=== PATIENT | male | born 1945 | race Caucasian/White ===

== ENCOUNTER → 2023-01-25 | Day surgery (SDC) | payer OTHER ==
[2023-01-22 14:44] LABS: Lymphocytes % 28.2 % (15.3-44.8); MCV 88.1 fL (80-100); MPV 8.2 fL (7.6-11.3); RBC Red Blood Cell Count 4.88 M/uL (4.33-5.43)
[2023-01-22 14:47] LABS: Protime INR 0.94
[2023-01-22 14:55] LABS: Potassium 3.8 mmol/L (3.5-5.1)
--- NOTE | 2023-01-22 14:57 | RAD REPORT ---
EXAM DESCRIPTION: Kya Weiss And Lat (2 Views)01/22/2023 2:42 pm CLINICAL HISTORY: Preop for cardiac catheterization COMPARISON: 2010 FINDINGS: Mild right basilar lung opacity may represent area of atelectasis. Chronic elevation right hemidiaphragm Left lung appears clear. Heart is normal size
[~2023-01-25] MED LIST: ASPIRIN 325 MG TAB ONE; ATROPINE SULF 1 MG/10 ML SYR IV ONE; CLOPIDOGREL 75 MG TABLET ONE; FENTANYL CITR 100 MCG/2 ML ONE; HEPA 1000U/500MLS 2,000 UNIT/1,000 ML BAG IV ONE; HEPARIN 10,000 UNIT/10 ML VIAL IV ONE; HEPARIN 5000 UNIT/ML 1 ML VIAL ONE; LIDOCAINE 1% 20 ML MDV ONE; MIDAZOLAM HCL 2 MG/2 ML INJ ONE; NA CHLORIDE 0.9% 500 ML ONE; NITROGLYCERIN 100 MCG/ML SYR (for cath lab use only) IV ONE; NITROGLYCERIN/D5W 25 MG/250 ML BTL IV ONE; TICAGRELOR 90 MG TABLET PO ONE; VERAPAMIL HCL 10 MG/4 ML VIAL IV ONE
--- NOTE | 2023-01-25 13:25 | OP ---
Date of Procedure: 01/25/2023 Surgeon: WESLEY YBARRA Procedures Performed: 1.Selective coronary angiogram. 2.Left heart catheterization. 3.Percutaneous coronary intervention of the severe distal right coronary artery, critical stenosis w as 99%, used a 3.0 x 16 mm Synergy drug-eluting stent. Indication: Chest pain with abnormal stress test that shows inferior ischemia. Access: Right radial artery 6-Mauritian closed with TR band. Complications: None. Bleeding: Less than 10 mL. Anesthesia: Total sedation time was 45 minutes, used fentanyl and Versed. Description Of Procedure: After risks, benefits, and alternatives were explained, patient agreed to procedure and signed formal consent. Patient was brought into the cardiac catheterization laboratory , prepped and draped in usual sterile fashion. Then, I accessed right radial artery using pediatric micropuncture kit, placed 6-Mauritian slender sheath and took 5-Mauritian [place] 4.0 catheter into the aorti c root, engaged left main. Then, in right coronary artery, took standard views and then over the wir e, the catheter was pushed into the LV, measured the LVEDP, and pullback did not record any gradient. Then, we gave systemic heparin to assure ACT level above 250, and I exchanged the [place] catheter fo r a 6-Mauritian JR4 guide with side holes, engaged the RCA and then I took short Run-Through wire into t he RCA, placed it distally. I gave the patient 600 mg of Plavix and 325 mg of aspirin and then as le afsaneh was pre-dilated using a 3.0 balloon and then placed a 3.0 x 16 mm Synergy drug-eluting stent wit h excellent results and 0% residual stenosis and patient tolerated the procedure very well. Then, wi re and guide were removed and sheath was removed, placed TR band with good hemostasis. Findings: 1.Left main: Large and normal. 2.LAD: Moderate size with luminal irregularities throughout, luminal irregularities in the diagonal branches. 3.There is a small ramus intermedius with mild luminal irregularities. 4.Left circumflex is a codominant circulation with proximal 80% and then the OM1 takes off and that has mid 60% stenosis and then the circ also goes to the inferior wall and has distal 90% stenosis and the vessel becomes very small. 5.RCA is codominant circulation, rather moderate to large size vessel with proximal 30% to 40% steno sis and mid about 40% stenosis and distally there is 99% stenosis, status post successful PCI as abov e. 6.Normal LVEDP at 7 mmHg. Conclusion: 1.Severe distal RCA stenosis, 99%, status post successful PCI as above. 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 We will bring him back in about a month for staged PCI of the left circumfl ex. 3.Mild coronary artery disease elsewhere, and normal LVEDP. Plan: 1.Continue aspirin and Plavix and start him on high-dose statin. 2.To bring him back in a month for a repeat coronary angiogram with PCI of the left circumflex. [place] son for staging is chronic kidney disease and the contrast load. SR/MODL Voice ID: [id number] Report ID: [id number]
[2023-01-25 13:30] VITALS: TEMP 97
[2023-01-25 16:25] VITALS: BP 149/78; O2SAT 99
== END ==
LOC: CCL 10:44
PROVIDERS: ATTEND Internal Medicine
DX: I25.10 Atherosclerotic heart disease of native coronary artery without angina pectoris (principal); I35.0 Nonrheumatic aortic (valve) stenosis; I10 Essential (primary) hypertension; I51.7 Cardiomegaly; Z79.899 Other long term (current) drug therapy
CPT/HCPCS: 85025; 80048; 36415; 85610; 85347 ×3; 85730; 71046; 93458; 76937; C1893; Q9967; C1725; C1887; C9600; J1644; J2001; J2250; J3010; J7040; J0461

== ENCOUNTER 2023-03-07 06:30 | Day surgery (SDC) | payer OTHER ==
[2023-03-04 13:48] LABS: Absolute Lymphocytes (CBC) 1.9 K/uL (0.7-4.9); Hematocrit 46.6 % (39.6-49.0); Lymphocytes % 31.7 % (15.3-44.8); MCV 89.7 fL (80-100); MPV 8.9 fL (7.6-11.3)
[2023-03-04 14:15] LABS: Potassium 4.1 mEq/L (3.5-5.1)
[2023-03-04 14:23] LABS: Protime INR 0.88
--- NOTE | 2023-03-06 04:56 | EKG ---
Test Date: 2023-03-04 Test Time: 13:30:16 Cavalry Scout: AMIE MEASUREMENT RESULTS: Intervals: Rate: 55 MN: 164 QRSD: 92 QT: 408 QTc: 390 [place]: P: 44 MN: 164 QRS: 43 T: -46 INTERPRETIVE STATEMENTS: Sinus bradycardia ST & T wave abnormality, consider inferior ischemia Abnormal ECG Compared to ECG 11/07/2011 08:45:43 ST (T wave) deviation now present Possible ischemia now present Electronically Signed On 03-06-23 04:52:37 CDT by Zackary Calvin
[2023-03-07] MEDS ORDERED: HEPA 1000U/500MLS 2,000 UNIT/1,000 ML BAG IV ONE (06:42)
[2023-03-07] MEDS ORDERED: CLOPIDOGREL 75 MG TABLET ONE (06:43)
[2023-03-07] MEDS ORDERED: HEPARIN 5000 UNIT/ML 1 ML VIAL ONE (06:43)
[2023-03-07] MEDS ORDERED: VERAPAMIL HCL 10 MG/4 ML VIAL IV ONE (06:43)
[2023-03-07] MEDS ORDERED: MIDAZOLAM HCL 2 MG/2 ML INJ ONE (06:43)
[2023-03-07] MEDS ORDERED: FENTANYL CITR 100 MCG/2 ML ONE (06:43)
[2023-03-07] MEDS ORDERED: ASPIRIN 325 MG TAB ONE (06:44)
[2023-03-07] MEDS ORDERED: HEPARIN 10,000 UNIT/10 ML VIAL IV ONE (06:44)
[2023-03-07] MEDS ORDERED: NITROGLYCERIN 100 MCG/ML SYR (for cath lab use only) IV ONE (06:44)
[2023-03-07] MEDS ORDERED: TICAGRELOR 90 MG TABLET PO ONE (06:44)
[2023-03-07] MEDS ORDERED: ATROPINE SULF 1 MG/10 ML SYR IV ONE (06:44)
[2023-03-07] MEDS ORDERED: NITROGLYCERIN/D5W 25 MG/250 ML BTL IV ONE (06:44)
[2023-03-07] MEDS ORDERED: LIDOCAINE 1% 20 ML MDV ONE (06:45)
[2023-03-07] MEDS ORDERED: NA CHLORIDE 0.9% 500 ML ONE (07:04)
[2023-03-07 07:17] VITALS: TEMP 98.2
--- NOTE | 2023-03-07 08:58 | OP ---
Date of Procedure: 03/07/2023 Surgeon: WESLEY YBARRA Procedures Performed: 1.Selective coronary angiogram. 2.PCI of proximal left circumflex severe stenosis, used 2.5 x 12 mm Synergy drug-eluting stent. 3.Balloon angioplasty of severe distal left circumflex stenosis, used 2.5 x 8 mm Compliant balloon w ith improvement from 90% to 80%, but it is very small vessel that will not hold the stent. Access: Right femoral artery 6-Cuban closed with 6-Cuban Angio-Seal. Complications: None. Bleeding: Less than 20 mL. Description Of Procedure: After risks, benefits, and alternatives were explained, the patient agreed to procedure and signed informed consent. The patient was brought into the cardiac catheterization laboratory, prepped and draped in the usual sterile fashion and then I accessed right femoral artery using ultrasound guidance, micropuncture and fluoroscopy, placed a 6-Cuban [place] sheath and took a 6-Cuban EBU3.5 guide into the aortic root, engaged left main, took standard views and took a short Run-Through wire after giving systemic heparin assuring that ACT level above 250. Run-Through wire was advanced to the left circumflex, placed distally. Then, I took a 2.5 x 8 mm Compliant balloon, d id balloon angioplasty of the distal portion; however, the vessel is very small, so did not inflate t he balloon all the way up concern for rupture and then did balloon angioplasty of the proximal lesion and then I used 2.5 x 12 mm Synergy drug-eluting stent to treat the proximal lesion, but the vessel is extremely small. It is less than 2 mm and will not hold the stent. There was no dissection and T IMI-3 flow, so was left alone. I then removed the wire and the guide and sheath, and placed a 6-Fren ch Angio-Seal for closure with good hemostasis. Findings: 1.Left main; large, normal. 2.LAD; overall is normal. Luminal irregularity and normal diagonal branches. 3.There is a ramus intermedius without significant disease. 4.Left circumflex; proximal 90% stenosis, status post PCI as above. Then, the OM has a 50% to 60% d iffusely, which was left alone and the distal left circumflex is about 90%, status post balloon angio plasty as above. 5.The RCA was not injected. Conclusion: Severe left circumflex stenosis, status post successful PCI as above of the proximal por tion. Distal portion will be left for medical management. Continue aspirin, Plavix, and statin. SR/MODL Voice ID: [id number] Report ID: [id number]
[2023-03-07 11:38] VITALS: O2SAT 99
[2023-03-07 12:47] VITALS: BP 140/66
--- NOTE | 2023-03-08 07:09 | ECHO ---
HEIGHT: 5 ft 10 in WEIGHT: 190 lb 0 oz DATE OF STUDY: 03/07/[address]: Main Daniels 2-DIMENSIONAL: YES M.MODE: YES DOPPLER: YES COLOR FLOW: YES TDS: YES PORTABLE: YES DEFINITY: NO BUBBLE STUDY: NO DIAGNOSIS: ORTHOSTATIC HYPOTENSION CARDIAC HISTORY: CATHERIZATION:YES SURGERY: PROSTHETIC VALVE: PACEMAKER: MEASUREMENTS (cm) DIASTOLIC (NORMALS) SYSTOLIC (NORMALS) IVSd 1.0 (0.6-1.2) LA Diam (1.9-4.0) LVEF 64% LVIDd 3.3 (3.5-5.7) LVIDs 2.2 (2.0-3.5) %FS 34% LVPWd 1.1 (0.6-1.2) Ao Diam 3.1 (2.0-3.7) 2 DIMENSIONAL ASSESSMENT: RIGHT ATRIUM: NORMAL LEFT ATRIUM: NORMAL RIGHT VENTRICLE: NORMAL LEFT VENTRICLE: NORMAL TRICUSPID VALVE: NORMAL MITRAL VALVE: NORMAL PULMONIC VALVE: NORMAL AORTIC VALVE: NORMAL PERICARDIAL EFFUSION: NONE AORTIC ROOT: NORMAL LEFT VENTRICULAR WALL MOTION: NORMAL DOPPLER/COLOR FLOW: NOT REQUESTED. COMMENTS: 1. NORMAL 2D ECHOCARDIOGRAM. 2. NO EFFUSION. 3. NO WALL MOTION ABNORMALITY. TECHNOLOGIST: Larry ALICEA
== END 2023-03-07 12:49 | disposition home or self-care (01) ==
LOC: CCL 06:30
PROVIDERS: ATTEND Internal Medicine
DX: I25.10 Atherosclerotic heart disease of native coronary artery without angina pectoris (principal); I10 Essential (primary) hypertension; E78.5 Hyperlipidemia, unspecified
CPT/HCPCS: 93005; 93308; 85025; 80048; 36415; 85610; 85347; 85730; 76937; C1893; C1760; Q9967; G0269; C1725; C9600; J1644; J2001; J2250; J3010; J7040; 93454; J0461

== ENCOUNTER 2023-09-29 09:30 | Emergency (ER) | payer OTHER ==
--- OUTSIDE RECORDS SUMMARY | 2023-09-29 09:33 | XMS REPORT | Clinical Summary ---
:1945 Author Organization [facility] Address [address] [place] [address] Care Team Providers Name Role Phone Eric Son MD Unavailable [phone] Eric Son MD Unavailable [phone] Azeem BLUE MD, John F Unavailable Sheldon Zambrano Unavailable Brendan Finney MD Unavailable Last Mcghee Unavailable Azeem BLUE MD, John F Primary Care Provider Allergies No known active allergies Medications Medication Sig Dispensed Refills Start Date End Date Status amLODIPine daily. 0 03/14/2020 Active (NORVASC) 10 mg tablet finasteride daily. 0 02/21/2020 Active (PROSCAR) 5 mg tablet losartan (COZAAR) daily. 0 03/14/2020 A ctive 100 mg tablet turmeric (CURCUMIN 1 tablet by 0 Active MISC) miscellaneous route daily. cholecalciferol, Take 1,000 Units by 0 Active vitamin D3, 25 mcg mouth. (1,000 unit) tablet Active Problems Problem Noted Date Diagnosed Date Raised prostate specific antigen 04/25/2020 Surgical History Surgery Date Site/Laterality Comments LAPAROSCOPIC CHOLECYSTECOMY APPENDECTOMY Medical History Medical History Date Comments Hypertension Social History Tobacco Use Types Packs/Day Years Used Date Smoking Tobacco: Never Smokeless Tobacco: Never Alcohol Use Standard Drinks/Week Comments Not Currently 0 (1 standard drink = 0.6 oz pure alcoho l) Sex and Gender Information Value Date Recorded Sex Assigned at Male 04/18/2020 11:32 A M CDT Gender Identity Male 04/18/2020 11:32 AM CDT Sexual Orientation Straight 04/18/2020 11:32 AM CDT Job Start Date Occupation Industry Not on file Not on file Not on file Obstetrics History Last Filed Vital Signs Not on file Plan of Treatment Health Maintenance Due Date Last Done Comments COVID-19 Vaccination (#1) 02/24/1946 Results Not on fileafter 09/29/2022 Insurance Payer Benefit Plan / Subscriber ID Effective Dates Phone Addre ss Type Group AETNA MEDICARE AETNA MEDICARE [id number] 2021-Presen [address] [place] [address] Advance Directives Type Date Recorded 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 Explanati on Advance Directives: Living Will 04/13/2014 Historical Advance Directives: Medical Power of 04/13/2014 Historical Functional Tester Care Teams Closer On Relationship Specialty Start Date End Date Eric Son, PCP - External Referring 03/12/14 [address] [place] [address] Eric Son PCP - External Follow Up A 03/12/14 [address] [place] [address] Juan Manuel Gann III, MD PCP - General Urology 01/25/[address] [place] [id number] Juan Manuel Gann III, MD Physician 01/18/[address] [place] [id number] Sheldon Zambrano PA Physician Director Pharmaceutical 01/18/[address] [place] [address]. [place] [address] Brendan Finney MD Physician 01/18/[address] [place] [phone] Last Mcghee PA Physician Director Pharmaceutical 01/18/[address] [place] [id number]
--- OUTSIDE RECORDS SUMMARY | 2023-09-29 09:34 | XMS REPORT | Continuity of Care Document ---
:1945 Author Organization [facility] t Address [address] [facility]. [address] [place] [address] Care Team Providers Name Role Phone Justo Mccain Chang Primary Care Physician Justo Mccain Attending Clinician Unavailable TEODORO PANDEY Attending Clinician Unavailable Teodoro Pandey MD Attending Clinician Veronica Gann MD Attending Clinician VERONICA GANN III Attending Clinician Unavailable Payers Payer Name Policy Type Policy Number Effective Date Expiration Date S shweta [employer] [place] [id number] 2022 OPEN CHOICE PPO 00:00:00 AETNA 53 [id number] 2021 Common [facility] t 00:00:00 - [facility] Problems Condition Condition Condition Status Onset Resolution Last Treating Co mments Source Name Details Category Date Date Treatment Clinician Date Raised Raised Disease Active Univers prostate prostate 6-15 ity of specific specific 00:00: [place] antigen antigen 00 [facility] [id number] Benign Problem Common prostatic Spirit hyperplasi - [facility] a with [facility] urinary Medical tract Center symptoms, symptom details unspecifie d [id number] BPH loc w Problem Com mon urin Spirit obs/LUTS - [facility] Allergies, Adverse Reactions, Alerts Allergy Allergy Status Severity Reaction(s) Onset Inactive Treating Comm ents Source Name Type Date Date Clinician NO KNOWN Allergy Active [facility] Social History Social Habit Start Date Stop Date Quantity Comments Source History of Tobacco [facility] - Use [facility] Sexual orientation [facility] Tobacco use and 2020-04-25 2020-04-25 Smokeless Universit y of exposure 00:00:00 00:00:00 tobacco non-user [facility] Alcohol intake 2020-04-25 2020-04-25 Ex-drinker [facility] 00:00:00 00:00:00 (finding) Jenny Orona [facility] Sex Assigned At [address] 1945 [facility] 00:00:00 00:00:00 Medical Center Smoking Status Start Date Stop Date Source Never Smoker [facility] Medications Ordered Filled Start Stop Current Ordering Indication Dosage Frequency Signature Comments Components Source Medication Medication Date Date Medication? Clinician (SIG) Name Name turmeric Yes 1{tbl} 1 tablet Uni vers (CURCUMIN 6-10 by ity of MISC) 14:24: miscellane [place] 31 ous lucas NG daily. [facility] cholecalcif Yes 1000U Take 1,000 Univers martin, 6-10 Units by ity of vitamin D3, 14:24: mouth. Danya s 25 mcg 31 (1,000 Anderso unit) n tablet [facility] turmeric Yes 1{tbl} 1 tablet Uni vers (CURCUMIN 6-10 by ity of MISC) 14:24: miscellane [place] 31 ous route daily. [facility] cholecalcif Yes 1000U Take 1,000 Univers martin, 6-10 Units by ity of vitamin D3, 14:24[place] 25 [place] 31 (1,000 Anderso unit) n tablet [facility] turmeric Yes 1{tbl} 1 tablet Uni vers (CURCUMIN 6-10 by ity of MISC) 14:24: miscellane [place] 31 [facility]us route [facility]. [facility] cholecalcif 0 Yes 1000U Take 1,000 Univers martin, 6-10 Units by ity of vitamin D3, 14:24: [place] 25 m[place] 31 (1,000 Anderso unit) n tablet Cancer Center turmeric Yes 1{tbl} 1 tablet Uni vers (CURCUMIN 6-10 by ity of MISC) 14:24: miscellane [place] 31 ous route MD [facility]. [facility] cholecalcif 0 Yes 1000U Take 1,000 Univers martin, 6-10 Units by ity of vitamin D3, 14:24: [place] 25 mcg 31 (1,000 Anderso unit) n tablet Cancer Center turmeric Yes 1{tbl} 1 tablet Uni vers (CURCUMIN 6-10 by ity of MISC) 14:24: miscellane [place] 31 [address] route MD daily. [facility] cholecalcif Yes 1000U Take 1,000 Univers martin, 6-10 Units by ity of vitamin D3, 14:24: [place] 25 mcg 31 (1,000 Anderso unit) n tablet Cancer Center turmeric Yes 1{tbl} 1 tablet Uni vers (CURCUMIN 6-10 by ity of MISC) 14:24: miscellane [place] 31 [address] route MD daily. [facility] cholecalcif Yes 1000U Take 1,000 Univers martin, 6-10 Units by ity of vitamin D3, 14:24: [place]. [place] 25 mcg 31 MD (1,000 Anderso unit) n tablet Cancer Center turmeric Yes 1{tbl} 1 tablet Uni vers (CURCUMIN 6-10 by ity of MISC) 14:24: miscellane [place] 31 [address] MD daily. [facility] cholecalcif 0 Yes 1000U Take 1,000 Univers martin, 6-10 Units by ity of vitamin D3, 14:24: [place]. [place] 25 mcg 31 (1,000 Anderso unit) n tablet Cancer Center amLODIPine 0 Yes daily. Unive rs (NORVASC) 5-04 ity of 10 mg 00:00: [place] tablet [address] [facility] losartan 2020-0 Yes daily. Univers (COZAAR) 5-04 ity of 100 mg 00:00: [place] tablet [address] [facility] amLODIPine 2020-0 Yes daily. Unive rs (NORVASC) 5-04 ity of 10 mg 00:00: [place] tablet [address] [facility] losartan 2020-0 Yes daily. Univers (COZAAR) 5-04 ity of 100 mg 00:00: [place] tablet [address] [facility] amLODIPine 2020-0 Yes daily. Unive rs (NORVASC) 5-04 ity of 10 mg 00:00: [place] tablet [address] [facility] losartan 2020-0 Yes daily. Univers (COZAAR) 5-04 ity of 100 mg 00:00: [place] tablet [address] [facility] amLODIPine 2020-0 Yes daily. Unive rs (NORVASC) 5-04 ity of 10 mg 00:00: [place] tablet [address] [facility] losartan 2020-0 Yes daily. Univers (COZAAR) 5-04 ity of 100 mg 00:00: [place] tablet [address] [facility] amLODIPine 2020-0 Yes daily. Unive rs (NORVASC) 5-04 ity of 10 mg 00:00: [place] tablet [address] [facility] losartan 2020-0 Yes daily. Univers (COZAAR) 5-04 ity of 100 mg 00:00: [place] tablet [address] [facility] losartan 2020-0 Yes daily. Univers (COZAAR) 5-04 ity of 100 mg 00:00: [place] tablet [address] [facility] amLODIPine 2020-0 Yes daily. Unive rs (NORVASC) 5-04 ity of 10 mg 00:00: [place] tablet [address] [facility] amLODIPine 2020-0 Yes daily. Unive rs (NORVASC) 5-04 ity of 10 mg 00:00: [place] tablet [address] [facility] losartan 2020-0 Yes daily. Univers (COZAAR) 5-04 ity of 100 mg 00:00: [place] tablet [address] [facility] finasteride 2020-0 Yes daily. Univ ers (PROSCAR) 5 4-12 ity of mg tablet 00:00: [place] 00 [facility] finasteride 2020-0 Yes daily. Univ ers (PROSCAR) 5 4-12 ity of mg tablet 00:00: [place] 00 [facility] finasteride 2020-0 Yes daily. Univ ers (PROSCAR) 5 4-12 ity of mg tablet 00:00: [place] 00 [facility] finasteride 2020-0 Yes daily. Univ ers (PROSCAR) 5 4-12 ity of mg tablet 00:00: [place] 00 [facility] finasteride 2020-0 Yes daily. Univ ers (PROSCAR) 5 4-12 ity of mg tablet 00:00: [place] 00 [facility] finasteride 2020-0 Yes daily. Univ ers (PROSCAR) 5 4-12 ity of mg tablet 00:00: [place] 00 [facility] finasteride 2020-0 Yes daily. Univ ers (PROSCAR) 5 4-12 ity of mg tablet 00:00: [place] 00 [facility] Folate 400 Folate 400 No 1{table QD Folate 400 MCG MCG t} MCG amLODIPine amLODIPine No 1{table QD amLODIPine Besylate 10 Besylate 10 t} Besylate MG MG 10 MG Losartan Losartan No 1{table QD Losartan Potassium-H Potassium-H t} Potassium- CTZ 100-25 CTZ 100-25 HCTZ MG MG 100-25 MG Finasteride Finasteride No 1{table QD Finasterid 5 MG 5 MG t} e 5 MG Nac 600 600 Nac 600 600 No 1{capsu QD Nac 600 MG MG le} 600 MG Vitamin D Vitamin D No 1{table QD Vitamin D 50 MCG 50 MCG t} 50 MCG (1999) (1999) (1999 [place]) Finasteride Finasteride No 1{table QD Finasterid 5 MG 5 MG t} e 5 MG Folate 400 Folate 400 No 1{table QD Folate 400 MCG MCG t} MCG Nac 600 600 Nac 600 600 No 1{capsu QD Nac 600 MG MG le} 600 MG Vitamin D Vitamin D No 1{table QD Vitamin D 50 MCG 50 MCG t} 50 MCG (1999) (1999) (1999 [place]) Losartan Losartan No 1{table QD Losartan Potassium-H Potassium-H t} Potassium- CTZ 100-25 CTZ 100-25 HCTZ MG MG 100-25 MG amLODIPine amLODIPine No 1{table QD amLODIPine Besylate 10 Besylate 10 t} Besylate MG MG 10 MG Vital Signs Vital Name Observation Time Observation Value Comments Source height 2023-03-14 15:15:00 70 [in_i] [facility] weight 2023-03-14 15:15:00 195.8 [lb_av] [facility] temperature 2023-03-14 15:15:00 98 [degF] [facility] bmi 2023-03-14 15:15:00 28.09 kg/m2 [facility] oximetry 2023-03-14 15:15:00 96 % [facility] respiratory rate 2023-03-14 15:15:00 18 /min Comm on [facility] blood pressure 2023-03-14 15:15:00 136 mm[Hg] Common [facility] - systolic [facility] blood pressure 2023-03-14 15:15:00 68 mm[Hg] Common [facility] - diastolic [facility] height 2022-09-06 16:30:00 70 [in_i] [facility] weight 2022-09-06 16:30:00 198.6 [lb_av] [facility] temperature 2022-09-06 16:30:00 98.1 [degF] [facility] bmi 2022-09-06 16:30:00 28.49 kg/m2 [facility] oximetry 2022-09-06 16:30:00 99 % [facility] respiratory rate 2022-09-06 16:30:00 18 /min Comm on [facility] blood pressure 2022-09-06 16:30:00 202 mm[Hg] Common [facility] - systolic [facility] blood pressure 2022-09-06 16:30:00 89 mm[Hg] [facility] - diastolic [facility] Procedures Procedure Date / Time Performed Performing Clinician Sourmegan e MR PELVIS WITH & 2023-06-04 12:17:12 Teodoro Pandey [facility] WITHOUT IV CONTRAST Center Plan of Care Planned Activity Planned Date Details Comments Source Future Scheduled 2023-07-[address] [facility] Test 00:00:00 (#1) [code = Medical Center Influenza Vaccine (#1)] Future Scheduled 2023-07-[address] [facility] Test 00:00:00 (#1) [code = [facility] Influenza Vaccine (#1)] Future Scheduled 2023-07-[address] [facility] Test 00:00:00 (#1) [code = [facility] Influenza Vaccine (#1)] Future Scheduled 2023-07-[address] [facility] Test 00:00:00 (#1) [code = [facility] Influenza Vaccine (#1)] Future Scheduled 2023-07-[address] [facility] Test 00:00:00 (#1) [code = [facility] Influenza Vaccine (#1)] Future Scheduled 2022-11-[address] [facility] Test 00:00:00 (12+) [code = Medical Center DEPRESSION SCREENING (12+)] Future Scheduled 2022-11-11 FALLS RISK SCREENING [facility] Test 00:00:00 [code = FALLS RISK Medical C enter SCREENING] Future Scheduled 2022-11-[address] [facility] Test 00:00:00 (12+) [code = Medical Center DEPRESSION SCREENING (12+)] Future Scheduled 2022-11-11 FALLS RISK SCREENING [facility] Test 00:00:00 [code = FALLS RISK Medical C enter SCREENING] Future Scheduled 2022-11-[address] [facility] Test 00:00:00 (12+) [code = Medical Center DEPRESSION SCREENING (12+)] Future Scheduled 2022-11-11 FALLS RISK SCREENING [facility] Test 00:00:00 [code = FALLS RISK Medical C enter SCREENING] Future Scheduled 2022-11-[address] [facility] Test 00:00:00 (12+) [code = Medical Center DEPRESSION SCREENING (12+)] Future Scheduled 2022-11-11 F[address]S RISK SCREENING [facility] Test 00:00:00 [code = FALLS RISK Medical C enter SCREENING] Future Scheduled 2022-11-[address] [facility] Test 00:00:00 (12+) [code = Medical Center DEPRESSION SCREENING (12+)] Future Scheduled 2022-11-11 F[address]K SCREENING [facility] Test 00:00:00 [code = FALLS RISK Medical C enter SCREENING] Future Scheduled 2022-05-16 COVID-19 [facility] [place] [facility] 03:46:03 (#1) [code = COVID-19 [facility] (#1)] Center Future Scheduled 2022-05-16 COVID-19 Vaccination [facility] [place] Test 03:46:03 (#1) [code = COVID-19 [facility]ination (#1)] Center Future Scheduled 2022-05-16 COVID-19 Vaccination [facility] [place] Test 03:46:03 (#1) [code = COVID-19 [facility] Vaccination (#1)] Center Future Scheduled 2022-05-16 COVID-19 Vaccination [facility] [place] Test 03:46:03 (#1) [code = COVID-19 [facility] Vaccination (#1)] Center Future Scheduled 2022-05-16 COVID-19 Vaccination [facility] [place] Test 03:46:03 (#1) [code = COVID-19 [facility] Vaccination (#1)] Center Future Scheduled 2022-05-16 COVID-19 Vaccination [facility] [place] Test 03:46:03 (#1) [code = COVID-19 [facility] Vaccination (#1)] Center Future Scheduled 2022-05-16 COVID-19 Vaccination [facility] [place] Test 03:46:03 (#1) [code = COVID-19 MD [facility] Vaccination (#1)] Center Future Scheduled 2010 PNEUMOCOCCAL 65+ YRS [facility] Test 00:00:00 (1 - PCV) [code = Medical Ce nter PNEUMOCOCCAL 65+ YRS (1 - PCV)] Future Scheduled 2010 PNEUMOCOCCAL 65+ YRS [facility] Test 00:00:00 (1 - PCV) [code = Medical Ce nter PNEUMOCOCCAL 65+ YRS (1 - PCV)] Future Scheduled 2010 PNEUMOCOCCAL 65+ YRS [facility] Test 00:00:00 (1 - PCV) [code = Medical Ce nter PNEUMOCOCCAL 65+ YRS (1 - PCV)] Future Scheduled 2010 PNEUMOCOCCAL 65+ YRS [facility] Test 00:00:00 (1 - PCV) [code = Medical Ce nter PNEUMOCOCCAL 65+ YRS (1 - PCV)] Future Scheduled 2010 PNEUMOCOCCAL 65+ YRS [facility] Test 00:00:00 (1 - PCV) [code = Medical Ce nter PNEUMOCOCCAL 65+ YRS (1 - PCV)] Future Scheduled 1995 SHINGLES VACCINES ([address] [facility] Test 00:00:00 of 2) [code = Medical Center SHINGLES VACCINES (1 of 2)] Future Scheduled 1995 SHINGLES VACCINES ([address] [facility] Test 00:00:00 of 2) [code = Medical Center SHINGLES VACCINES (1 of 2)] Future Scheduled 1995 SHINGLES VACCINES ([address] [facility] Test 00:00:00 of 2) [code = Medical Center SHINGLES VACCINES (1 of 2)] Future Scheduled 1995 SHINGLES VACCINES ([address] [facility] Test 00:00:00 of 2) [code = Medical Center SHINGLES VACCINES (1 of 2)] Future Scheduled 1995 SHINGLES VACCINES ([address] [facility] Test 00:00:00 of 2) [code = Medical Center SHINGLES VACCINES (1 of 2)] Future Scheduled 1964 DTAP/TDAP/TD VACCINES [facility] 00:00:00 (1 - Tdap) [code = Medical C enter DTAP/TDAP/TD VACCINES (1 - Tdap)] Future Scheduled 1964 DTAP/TDAP/TD VACCINES [facility] 00:00:00 (1 - Tdap) [code = Medical C enter DTAP/TDAP/TD VACCINES (1 - Tdap)] Future Scheduled 1964 DTAP/TDAP/TD VACCINES [facility] 00:00:00 (1 - Tdap) [code = Medical C enter DTAP/TDAP/TD VACCINES (1 - Tdap)] Future Scheduled 1964 DTAP/TDAP/TD VACCINES [facility] 00:00:00 (1 - Tdap) [code = Medical C enter DTAP/TDAP/TD VACCINES (1 - Tdap)] Future Scheduled 1964 DTAP/TDAP/TD VACCINES [facility] 00:00:00 (1 - Tdap) [code = Medical C enter DTAP/TDAP/TD VACCINES (1 - Tdap)] Future Scheduled 1963 HEPATITIS C [facility]CREENING [facility] 00:00:00 [code = HEPATITIS C Medical Center SCREENING] Future Scheduled 1963 HEPATITIS C [facility]CRE[facility]ING [facility] 00:00:00 [code = HEPATITIS C Medical Center SCREENING] Future Scheduled 1963 HEPATITIS C [facility]CRE[facility]ING [facility] 00:00:00 [code = HEPATITIS C Medical Center SCREENING] Future Scheduled 1963 HEPATITIS C [facility]CRE[facility]ING [facility] 00:00:00 [code = HEPATITIS C Medical Center SCREENING] Future Scheduled 1963 HEPATITIS C [facility]CRE[facility]ING [facility] 00:00:00 [code = HEPATITIS C Medical Center SCREENING] Future Scheduled [address] [facility] Test 00:00:00 Counseling and Medical Cente r Screening (12+) [code = Tobacco Cessation Counseling and Screening (12+)] Future Scheduled [address] [facility] Test 00:00:00 Counseling and Medical Cente r Screening (12+) [code = Tobacco Cessation Counseling and Screening (12+)] Future Scheduled [address] [facility] Test 00:00:00 Counseling and Medical Cente r Screening (12+) [code = Tobacco Cessation Counseling and Screening (12+)] Future Scheduled [address] [facility] Test 00:00:00 Counseling and Medical Cente r Screening (12+) [code = Tobacco Cessation Counseling and Screening (12+)] Future Scheduled [address] [facility] Test 00:00:00 Counseling and Medical Cente r Screening (12+) [code = Tobacco Cessation Counseling and Screening (12+)] Future Scheduled 1946-02-24 COVID-19 VACCINE (#1) [facility] 00:00:00 [code = COVID-[address] VACCINE (#1)] Future Scheduled 1946-02-24 COVID-19 VACCINE (#1) [facility] 00:00:00 [code = COVID-[address] VACCINE (#1)] Future Scheduled 1946-02-24 COVID-19 VACCINE (#1) [facility] 00:00:00 [code = COVID-[address] VACCINE (#1)] Future Scheduled 1946-02-24 COVID-19 VACCINE (#1) [facility] 00:00:00 [code = COVID-[address] VACCINE (#1)] Future Scheduled 1946-02-24 COVID-19 VACCINE (#1) [facility] 00:00:00 [code = COVID-[address] VACCINE (#1)] Encounters Start End Encounter Admission Attending Care Care Encounter Source Date/Time Date/Time Type Type Clinicians Facility Department ID 2022-09-06 Outpatient Mccain, [facility] [id number] Common 16:15:02 [facility] [id number] Spir it - [facility] 2023-06-04 2023-06-04 [id number] 08:59:57 23:59:00 [facility] 2023-06-04 2023-06-04 [id number] 08:59:57 23:59:00 Encounter [facility] 2023-06-04 2023-06-04 [facility] Dannie [facility] [id number] 08:59:57 23:59:00 Encounter [facility] 2023-03-25 2023-03-25 Outside Dannie [facility] [id number] 00:00:00 00:00:00 Orders [facility] 2023-03-25 2023-03-25 Outside Dannie [facility] [id number] 00:00:00 00:00:00 Orders [facility] 2023-03-14 2023-03-14 OFFICE [facility] [id number] Co mmon 00:00:00 00:00:00 VISIT Spirit ESTAB PT - [facility]I LEVEL 3 [facility] 2022-09-06 2022-09-06 [facility] [id number] Co mmon 00:00:00 00:00:00 VISIT Spirit ESTAB PT - [facility] LEVEL 2 [facility] 2022-04-23 2022-04-23 Telemedici Gann, Veronica [id number] [facility] 13:00:00 13:30:00 joshua [id number] ity of [id number] [place] .[id number] .[id number] [facility] 2021-06-27 2021-06-27 Outpatient EL GANN III, MDA MDA [id number] 10:03:43 10:03:43 VERONICA marshall 2021-06-19 2021-06-19 Outpatient EL GANN III, MDA RAFY [id number] 00:00:00 00:00:00 VERONICA marshall 2020-12-05 2020-12-05 Outpatient EL GANN III, MDA MDA [id number] 14:39:21 15:26:38 VERONICA marshall 2020-10-31 2020-10-31 Outpatient EL GANN III, MDA MDA [id number] 00:00:00 00:00:00 VERONICA marshall 2020-10-31 2020-10-31 Outpatient EL GANN III, MDA MDA [id number] 00:00:00 00:00:00 VERONICA marshall 2020-04-29 2020-04-29 Outpatient EL GANN III, MDA MDA [id number] 10:52:07 10:52:07 VERONICA marshall Results Test Test Test Results Result Source Description Time Comments Comments MR PELVIS WITH 2023-06- & WITHOUT IV 01 [facility] 1945 Sex: M MELISSA HNIQUE: MRI of the prostate WITHOUT and WITH intravenous contrast.INDICATION: Unlisted Reason for Exam. Elevated PSACOMPARISON: None.FINDINGS:PROSTATE: The prostate measures 7.3 x 5.8 x 6.1 cm (134 mL). An area ofmarkedly restricted diffusion extends from the left base to apicalperipheral zone (greatest in the mid gland) measures 1.7 cm on series 23image 16. This area markedly enhances on early phase imaging. PI-RADS 5SEMINAL VESICLES: Unremarkable.LYMPH NODES: No pelvic lymphadenopathy.BLADDER: Unremarkable.RECTUM: Unremarkable.PERITONEUM/RETROPER ITONEUM: No free fluid. 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 An area of markedly restricted diffusion in the left base to apicalperipheral zone measures 1.7 cm. PI-RADS 52. No lymphadenopathy3. Marked prostatomegalyElectronically Signed By: Rk Rees06/11/2023 09:33 CDTWorkstation Name: [id number]
--- NOTE | 2023-09-29 09:52 | ER ---
Nurse's Notes [facility] Name: Anurag Hopper Age: 78 yrs Sex: Male : 1945 Arrival Date: 09/29/2023 Time: 09:30 Bed 8 Private MD: Diagnosis: Other retention of urine-PVR 850 CC;Retention of urine, unspecified Presentation: 09/29 09:40 Chief complaint: Unable to urinate since this morning, had prostate biopsy Saturday by Dr. Pandey. Coronavirus screen: At this time, the client does not indicate any symptoms associated with coronavirus-19. Ebola Screen: No symptoms or risks identified at this time. Initial Sepsis Screen: Does the patient meet any 2 criteria? No. Patient's initial sepsis screen is negative. Does the patient have a suspected source of infection? No. Patient's initial sepsis screen is negative. Risk Assessment: Do you want to hurt yourself or someone else? Patient reports no desire to harm self or others. Onset of symptoms was September 29, 2023. 09:40 Method Of Arrival: Ambulatory 09:40 Acuity: TERRY 3 Triage Assessment: 09:35 General: Appears uncomfortable, Behavior is cooperative. Pain: Complains of pain in aa5 suprapubic area Pain does not radiate. Pain currently is 8 out of 10 on a pain scale. Quality of pain is described as aching, Pain began 3 hours ago. Is continuous. Historical: - Allergies: 09:43 No Known Allergies; hb - Home Meds: 09:55 losartan 50 mg oral tablet 2 times per day [Active]; aspirin 81 mg Oral tablet,chewable hb [Active]; atorvastatin 40 mg oral tablet daily [Active]; amlodipine 10 mg tablet 2 times per day [Active]; finasteride 5 mg oral tablet daily [Active]; nebivolol 20 mg oral tablet daily [Active]; clopidogrel 75 mg oral tablet daily [Active]; amlodipine 10 mg tablet 2 times per day [Active]; - Immunization history:: Adult Immunizations unknown. - Family history:: not pertinent. - Social history:: Smoking status: Patient denies any tobacco usage or history of. Screenin:35 [facility] ED Fall Risk Assessment (Adult) History of falling in the last 3 months, rs5 including since admission No falls in past 3 months (0 pts) Confusion or Disorientation No (0 pts) Intoxicated or Sedated No (0 pts) Impaired Gait No (0 pts) Mobility Assist Device Used No (0 pt) Altered Elimination No (0 pt) Score/Fall Risk Level 0 - 2 = Low Risk Oriented to surroundings, Maintained a safe environment. Abuse screen: Denies threats or abuse. Nutritional screening: No deficits noted. Tuberculosis screening: No symptoms or risk factors identified. Assessment: 09:35 Reassessment: Pt states "I have what people call white coat syndrome, my blood rs5 pressures tends to read higher in hospitals and at clinics than it is at home". General: Appears in no apparent distress. comfortable, Behavior is calm, cooperative. Pain: Complains of pain in suprapubic area Pain does not radiate. Pain currently is 8 out of 10 on a pain scale. Quality of pain is described as aching, tender, Pain began 3 hours ago. Is continuous. Neuro: Level of Consciousness is awake, alert, obeys commands, Oriented to person, place, time, situation. Cardiovascular: Heart tones S1 S2 present Rhythm is regular. Respiratory: Airway is patent Respiratory effort is even, unlabored, Respiratory pattern is regular, symmetrical, Breath sounds are clear bilaterally. GI: Abdomen is round distended, Bowel sounds present X 4 quads. Abdomen is tender to palpation in suprapubic area Reports lower abdominal pain. : Last void was September 29, 2023. Bladder is distended Reports inability to void, since September 29, 2023. EENT: No signs and/or symptoms were reported regarding the EENT system. Derm: Skin is intact, Skin is pink, warm \\T\\ dry. Musculoskeletal: Range of motion: intact in all extremities. 10:05 Reassessment: Patient states feeling better. Patient states symptoms have improved. To rs5 bedside for Akhtar insertion with tech. Successful Akhtar insertion, pt tolerated procedure well. Pt voided 850 ml of clear donna urine in Akhtar bag . 10:05 Pain: Denies pain. rs5 10:20 Reassessment: Patient and/or family updated on plan of care and expected duration. Pain rs5 level reassessed. Patient is alert, oriented x 3, equal unlabored respirations, skin warm/dry/pink. Akhtar bag changed to leg bag and secured to right lower extremity with straps. 10:49 Reassessment: Patient and/or family updated on plan of care and expected duration. Pain rs5 level reassessed. Patient is alert, oriented x 3, equal unlabored respirations, skin warm/dry/pink. Vital Signs: 09:40 BP 212 / 98; Pulse 81; Resp 16; Temp 98(TE); Pulse Ox 100% on R/A; Weight 81.65 kg; hb Height 5 ft. 10 in. ; Pain 10/10; 09:40 BP 180 / 96; Pulse 77; Resp 17; Temp 98(O); Pulse Ox 99% on R/A; rs5 10:20 BP 170 / 89; Pulse 75; Resp 16; Pulse Ox 99% on R/A; rs5 09:40 Body Mass Index 25.83 (81.65 kg, 177.8 cm) hb 09:40 Pain Scale: Adult hb ED Course: 09:32 Patient arrived in ED. mr 09:35 Patient has correct armband on for positive identification. Placed in gown. Bed in low rs5 position. Call light in reach. Side rails up X2. 09:36 Logan Branham MD is Attending Physician. silvio 09:41 Sami Jon RN is Primary Nurse. rs5 09:42 Triage completed. hb 09:43 Arm band placed on. hb 10:50 No provider procedures requiring assistance completed. Patient did not have IV access rs5 during this emergency room visit. Administered Medications: 10:10 Drug: Flomax PO 0.4 mg PO once Route: PO; rs5 10:50 Follow up: Response: No adverse reaction aa5 10:50 Follow up: Response: No adverse reaction rs5 10:10 Drug: Ciprofloxacin PO 250 mg PO once Route: PO; rs5 10:50 Follow up: Response: No adverse reaction rs5 Medication: 10:50 VIS not applicable for this client. rs5 Outcome: 09:51 Discharge ordered by . silvio 10:50 Discharged to home ambulatory, rs5 10:50 Condition: stable 10:50 Discharge instructions given to patient, Instructed on discharge instructions, follow up and referral plans. Akhtar leg bag care, to keep bag below bladder level, how to empty bag when 2/[address] way full 11:01 Patient left the ED. iw Signatures: Logan Branham MD MD cha Rivera, Mary, Reg Reg mr Fariba Carrillo RN RN iw Connie Lynn RN RN aa5 Katelynn Wolf RN RN Sami Jon RN RN rs5 Corrections: (The following items were deleted from the chart) 14:56 10:05 Reassessment: Patient states feeling better. Patient states symptoms have aa5 improved. To bedside for Akhtar insertion with tech. Successful Akhtar insertion, pt tolerated procedure well. Pt voided 850 ml of clear donna urine in Akhtar bag . rs5 15: 14:51 General: Appears aa5 aa5 17: 09:35 General: Appears in no apparent distress. comfortable, Behavior is calm, rs5 cooperative, aa5 17: 09:35 Pain: Complains of pain in suprapubic area Pain does not radiate. Pain currently rs5 is 8 out of 10 on a pain scale. Quality of pain is described as aching, tender, Pain began 3 hours ago. Is continuous, aa5 : 09:35 Neuro: Level of Consciousness is awake, alert, obeys commands, Oriented to rs5 person, place, time, situation, aa5 : 09:35 Cardiovascular: Heart tones S1 S2 present Rhythm is regular aa5 rs5 17: 09:35 Respiratory: Airway is patent Respiratory effort is even, unlabored, Respiratory rs5 pattern is regular, symmetrical, Breath sounds are clear bilaterally. aa5 : 09:35 GI: Abdomen is round distended, Bowel sounds present X 4 quads. Abdomen is tender rs5 to palpation in suprapubic area Reports lower abdominal pain, aa5 : 09:35 : Last void was September 29, 2023. Bladder is distended Reports inability to rs5 void, since September 29, 2023 aa5 : 09:35 EENT: No signs and/or symptoms were reported regarding the EENT system. aa5 rs5 : 09:35 Derm: Skin is intact, Skin is pink, warm \\T\\ dry. aa5 rs5 : 09:35 Musculoskeletal: Range of motion: intact in all extremities, aa5 rs5 17: 09:35 Reassessment: Pt states "I have what people call white coat syndrome, my blood rs5 pressures tends to read higher in hospitals and at clinics than it is at home". aa5 17: 10:05 Reassessment: Patient states feeling better. Patient states symptoms have rs5 improved. To bedside for Akhtar insertion with tech. Successful Akhtar insertion, pt tolerated procedure well. Pt voided 850 ml of clear donna urine in Akhtar bag . [facility] : 10:20 Reassessment: Patient and/or family updated on plan of care and expected rs5 duration. Pain level reassessed. Patient is alert, oriented x 3, equal unlabored respirations, skin warm/dry/pink. Akhtar bag changed to leg bag and secured to right lower extremity with straps. [facility] 17: 10:05 Pain: Denies pain. [place] [id number] 17: 10:49 Reassessment: Patient and/or family updated on plan of care and expected rs5 duration. Pain level reassessed. Patient is alert, oriented x 3, equal unlabored respirations, skin warm/dry/pink. [facility] : 10:50 No provider procedures requiring assistance completed. [place] [id number] 17: 10:50 Patient did not have IV access during this emergency room visit. [place] [id number] 17: 09:35 Patient has correct armband on for positive identification. Placed in gown. Bed rs5 in low position. Call light in reach. Side rails up X2. [facility]: 10:50 Discharged to home ambulatory, [place] [id number] 17: 10:50 Condition: stable [place] [id number] 17: 10:50 Discharge instructions given to patient, Instructed on discharge instructions, rs5 follow up and referral plans. Akhtar leg bag care, to keep bag below bladder level, how to empty bag when 2/[address] [facility] : 09:35 [facility] ED Fall Risk Assessment (Adult) History of falling in the last 3 months, rs5 including since admission No falls in past 3 months (0 pts) Confusion or Disorientation No (0 pts) Intoxicated or Sedated No (0 pts) Impaired Gait No (0 pts) Mobility Assist Device Used No (0 pt) Altered Elimination No (0 pt) Score/Fall Risk Level 0 - 2 = Low Risk Oriented to surroundings, Maintained a safe environment, [facility] : 09:35 Abuse screen: Denies threats or abuse. [place] [id number] 17: 09:35 Nutritional screening: No deficits noted. [place] [id number] 17: 09:35 Tuberculosis screening: No symptoms or risk factors identified. aa5 rs5 17:03 09:40 BP 180 / 96; Pulse 77bpm; Resp 17bpm; Pulse Ox 99% RA; Temp 98F Oral; aa5 rs5 17:03 10:20 BP 170 / 89; Pulse 75bpm; Resp 16bpm; Pulse Ox 99% RA; aa5 rs5 17:04 10:50 Immunization history: Adult Immunizations unknown, aa5 rs5 17:04 10:50 Social history: Smoking status: Patient denies any tobacco usage or history of. rs5 aa5 17:04 10:50 VIS not applicable for this client. aa5 rs5 17:04 10:50 Response: No adverse reaction aa5 rs5 17:04 10:50 Response: No adverse reaction aa5 rs5
--- NOTE | 2023-09-29 09:52 | EDPHYS ---
Physician Documentation [facility] Name: Anurag Hopper Age: 78 yrs Sex: Male : 1945 Arrival Date: 09/29/2023 Time: 09:30 Bed 8 Private MD: ED Physician Logan Branham HPI: 09/29 09:46 This 78 yrs old Male presents to ER via Ambulatory with complaints of Urinary silvio Problem, Testicular Swelling. 09:46 The patient presents with urinary symptoms, unable to void. Onset: The symptoms/episode silvio began/occurred 1 day(s) ago. Modifying factors: The symptoms are alleviated by nothing, the symptoms are aggravated by nothing. Associated signs and symptoms: The patient has no apparent associated signs or symptoms. Severity of symptoms: At their worst the symptoms were moderate, in the emergency department the symptoms are unchanged. The patient has not experienced similar symptoms in the past. Historical: - Allergies: 09:43 No Known Allergies; hb - Home Meds: 09:55 losartan 50 mg oral tablet 2 times per day [Active]; aspirin 81 mg Oral tablet,chewable hb [Active]; atorvastatin 40 mg oral tablet daily [Active]; amlodipine 10 mg tablet 2 times per day [Active]; finasteride 5 mg oral tablet daily [Active]; nebivolol 20 mg oral tablet daily [Active]; clopidogrel 75 mg oral tablet daily [Active]; amlodipine 10 mg tablet 2 times per day [Active]; - Immunization history:: Adult Immunizations unknown. - Family history:: not pertinent. - Social history:: Smoking status: Patient denies any tobacco usage or history of. ROS: 09:46 Constitutional: Negative for fever, chills, and weight loss, Eyes: Negative for injury, silvio pain, redness, and discharge, ENT: Negative for injury, pain, and discharge, Neck: Negative for injury, pain, and swelling, Cardiovascular: Negative for chest pain, palpitations, and edema, Respiratory: Negative for shortness of breath, cough, wheezing, and pleuritic chest pain, Abdomen/GI: Negative for abdominal pain, nausea, vomiting, diarrhea, and constipation, Back: Negative for injury and pain, MS/Extremity: Negative for injury and deformity, Skin: Negative for injury, rash, and discoloration, Neuro: Negative for headache, weakness, numbness, tingling, and seizure, Psych: Negative for depression, anxiety, suicide ideation, homicidal ideation, and hallucinations, Allergy/Immunology: Negative for hives, rash, and allergies, Endocrine: Negative for neck swelling, polydipsia, polyuria, polyphagia, and marked weight changes, Hematologic/Lymphatic: Negative for swollen nodes, abnormal bleeding, and unusual bruising, 09:46 : Positive for difficulty urinating, Exam: 09:46 Constitutional: This is a well developed, well nourished patient who is awake, alert, silivo and in no acute distress. Head/Face: Normocephalic, atraumatic. Eyes: Pupils equal round and reactive to light, extra-ocular motions intact. Lids and lashes normal. Conjunctiva and sclera are non-icteric and not injected. Cornea within normal limits. Periorbital areas with no swelling, redness, or edema. ENT: Nares patent. No nasal discharge, no septal abnormalities noted. Tympanic membranes are normal and external auditory canals are clear. Oropharynx with no redness, swelling, or masses, exudates, or evidence of obstruction, uvula midline. Mucous membranes moist. Neck: Trachea midline, no thyromegaly or masses palpated, and no cervical lymphadenopathy. Supple, full range of motion without nuchal rigidity, or vertebral point tenderness. No Meningismus. Chest/axilla: Normal chest wall appearance and motion. Nontender with no deformity. No lesions are appreciated. Cardiovascular: Regular rate and rhythm with a normal S1 and S2. No gallops, murmurs, or rubs. Normal PMI, no JVD. No pulse deficits. Respiratory: Lungs have equal breath sounds bilaterally, clear to auscultation and percussion. No rales, rhonchi or wheezes noted. No increased work of breathing, no retractions or nasal flaring. Back: No spinal tenderness. No costovertebral tenderness. Full range of motion. Male : Normal genitalia with no discharge or lesions. Skin: Warm, dry with normal turgor. Normal color with no rashes, no lesions, and no evidence of cellulitis. MS/ Extremity: Pulses equal, no cyanosis. Neurovascular intact. Full, normal range of motion. Neuro: Awake and alert, GCS 15, oriented to person, place, time, and situation. Cranial nerves II-XII grossly intact. Motor strength 5/5 in all extremities. Sensory grossly intact. Cerebellar exam normal. Normal gait. Psych: Awake, alert, with orientation to person, place and time. Behavior, mood, and affect are within normal limits. 09:46 Abdomen/GI: Inspection: distension, Bowel sounds: normal, Palpation: moderate abdominal tenderness, in the suprapubic area, Liver: no appreciated palpable abnormalities, Hernia: not appreciated, Vital Signs: 09:40 BP 212 / 98; Pulse 81; Resp 16; Temp 98(TE); Pulse Ox 100% on R/A; Weight 81.65 kg; hb Height 5 ft. 10 in. ; Pain 10/10; 09:40 BP 180 / 96; Pulse 77; Resp 17; Temp 98(O); Pulse Ox 99% on R/A; rs5 10:20 BP 170 / 89; Pulse 75; Resp 16; Pulse Ox 99% on R/A; rs5 09:40 Body Mass Index 25.83 (81.65 kg, 177.8 cm) hb 09:40 Pain Scale: Adult hb MDM: 09:36 Patient medically screened. silvio 09:49 Differential diagnosis: UTI, urinary retention, Akhtar catheter problem, prostatitis. [facility] Data reviewed: vital signs, nurses notes, lab test result(s), urinalysis. Consideration of Admission/Observation Escalation of care including admission/observation considered. I considered the following discharge prescriptions or medication management in the emergency department Medications were administered in the Emergency Department. See MAR. Test considered but Not performed: Labs: no labs. Care significantly affected by the following chronic conditions: Hypertension. 09/29 09:46 Order name: Urinalysis w/ reflexes [facility] 09/29 09:46 Order name: Akhtar; Complete Time: 10:08 [facility] 09/29 09:46 Order name: Akhtar Leg Bag; Complete Time: 10:22 [facility] 09/29 09:53 Order name: Misc. Order: note pvr; Complete Time: 10:22 [facility] Administered Medications: 10:10 Drug: Flomax PO 0.4 mg PO once Route: PO; rs5 10:50 Follow up: Response: No adverse reaction aa5 10:50 Follow up: Response: No adverse reaction rs5 10:10 Drug: Ciprofloxacin PO 250 mg PO once Route: PO; rs5 10:50 Follow up: Response: No adverse reaction rs5 Disposition Summary: 09/29/23 09:51 Discharge Ordered Notes: Location: Home [facility] Problem: new silvio Symptoms: have improved silvio Condition: Stable silvio Diagnosis - Retention of urine, unspecified silvio - Other retention of urine - PVR 850 CC(09/29/23 10:24) [facility] Followup: silvio - With: Private Physician - When: 2 - 3 days - Reason: Recheck today's complaints, Continuance of care, Re-evaluation by your physician Discharge Instructions: - Discharge Summary Sheet silvio - Indwelling Urinary Catheter Care, Adult silvio - Acute Urinary Retention, Male silvio - Acute Urinary Retention, Male, [id number] silvio - Indwelling Urinary Catheter Care, Adult, [id number] [facility] Forms: - Medication Reconciliation Form [facility] - Thank You Letter [facility] - Antibiotic Education [facility] - Prescription Opioid Use [facility] - Patient Portal Instructions [facility] - Leadership Thank You Letter [facility] Prescriptions: - Flomax 0.4 mg Oral capsule - take 1 capsule ORAL route every 24 hours; 30 capsule; Refills: 0, Product [facility] Selection Permitted - Cipro 250 mg Oral tablet - take 1 tablet ORAL route every 12 hours; 6 tablet; Refills: 0, Product [facility] Selection Permitted Signatures: Dispatcher [employer] EDSD Logan Branham MD MD cha Calderon, Audri RN RN aa5 Katelynn Wolf RN RN Sami Jon RN RN rs5 Corrections: (The following items were deleted from the chart) 10:24 09:51 Other retention of urine [facility] 17:04 10:50 Immunization history: Adult Immunizations unknown, aa5 rs5 17:04 10:50 Social history: Smoking status: Patient denies any tobacco usage or history of. rs5 aa5
[2023-09-29] MEDS ORDERED: CIPROFLOXACIN HCL 500 MG TAB ONE (10:24)
[2023-09-29] MEDS ORDERED: TAMSULOSIN 0.4 MG SR CAP ONE (10:24)
[2023-09-29 10:32] LABS: Specific Gravity 1.005 (1.005-1.030); Urine Bacteria <20 /HPF (<20); Urine Bilirubin NEGATIVE (Negative); Urine Blood 3+ (OVER) (Negative); Urine Clarity Turbid (Clear); Urine Color Colorless (Yellow); Urine Glucose NEGATIVE (Negative); Urine Protein NEGATIVE (Negative); Urine RBC <5 /HPF (None Seen); Urine Urobilinogen Normal (Normal)
[2023-09-29 11:05] VITALS: BP 212/98; TEMP 98; O2SAT 100
== END 2023-09-29 11:01 | disposition home or self-care (01) ==
LOC: ER 09:30
DX: R33.9 Retention of urine, unspecified (principal); Z79.899 Other long term (current) drug therapy; Z79.82 Long term (current) use of aspirin
CPT/HCPCS: 81001; 99283

== ENCOUNTER 2024-10-12 11:00 | Observation (INO) | payer OTHER ==
[2024-10-06 09:56] LABS: Absolute Eosinophils 0.1 K/uL (0-0.5); Absolute Lymphocytes (CBC) 1.8 K/uL (0.7-4.9); Absolute Monocytes 0.8 K/uL (0.1-1.3); Absolute Neutrophil 3.1 K/uL (1.8-8.0); Basophils % 0.5 % (0-1.3); Eosinophils % 1.7 % (0-4.4); Hematocrit 28.5 % (39.6-49.0); Lymphocytes % 31.6 % (15.3-44.8); MCHC 31.5 g/dL (32.0-36.0); Monocytes % 13.6 % (3.3-12.3); Neutrophils % 52.6 % (41.7-73.7); Nucleated Red Blood Cells % 0.1 % (0-0); Platelets 293 thou/uL (152-406); RBC Red Blood Cell Count 3.91 M/uL (4.33-5.43); Red Cell Distribution Width 17.8 % (12.1-15.2)
[2024-10-06 10:02] LABS: PT Prothrombin Time 10.8 SECONDS (9.4-12.5); PTT, Activated Partial Thromb 33.6 SECONDS (24.3-36.9); Protime INR 0.96
--- NOTE | 2024-10-06 10:21 | RAD REPORT ---
EXAMINATION: TWO VIEW CHEST XR CLINICAL INDICATION: Pre-op pending abdominal angiogram TECHNIQUE: 2 views of the chest was performed. COMPARISON: 05/20/2024 FINDINGS: The lungs are hyperexpanded suggesting COPD. The heart is upper limit of normal in size. No displaced fractures evident. Small hiatal hernia suspected. IMPRESSION: COPD is suspected without acute finding identified. The USPSTF recommends annual screening for lung cancer with low-dose computed tomography (LDCT) in ad ults aged 50 to 80 years who have a 20 pack-year smoking history and currently smoke or have quit within the past 15 years. Screening should be discontinued once a person has not smoked for 15 years or develops a health problem that substantially limits life expectancy or the ability or willingness to have curative lung surgery.
--- NOTE | 2024-10-07 11:36 | EKG ---
Test Date: 2024-10-06 Test Time: 10:39:46 Medical Assistant Prn: KARYNA MEASUREMENT RESULTS: Intervals: Rate: 47 ID: [id number] QRSD: 96 QT: 422 QTc: 373 Benedict: P: 38 ID: [id number] QRS: 46 T: 52 INTERPRETIVE STATEMENTS: Marked sinus bradycardia Abnormal ECG Compared to ECG 03/04/2023 13:30:16 ST (T wave) deviation no longer present Possible ischemia no longer present Electronically Signed On 10-07-24 11:32:14 GREEN FEED ATTENDANT by Leeroy Pritchett
[2024-10-12] MEDS ORDERED: NA CHLORIDE 0.9% 500 ML ONE (11:14)
[2024-10-12] MEDS ORDERED: HEPA 1000U/500MLS 2,000 UNIT/1,000 ML BAG IV ONE (11:30)
[2024-10-12] MEDS ORDERED: NITROGLYCERIN/D5W 50 MG/250 ML BTL IV ONE (11:31)
[2024-10-12] MEDS ORDERED: HEPARIN 10,000 UNIT/10 ML VIAL IV ONE ×2 (11:31→12:50)
[2024-10-12] MEDS ORDERED: LIDOCAINE 1% 20 ML MDV ONE (11:31)
[2024-10-12] MEDS ORDERED: ATROPINE SULF 1 MG/10 ML SYR IV ONE (11:32)
[2024-10-12] MEDS ORDERED: MIDAZOLAM HCL 2 MG/2 ML INJ ONE (11:32)
[2024-10-12] MEDS ORDERED: FENTANYL CITR 100 MCG/2 ML ONE ×2 (11:33→14:07)
[2024-10-12] MEDS ORDERED: ASPIRIN 325 MG TAB ONE (11:33)
[2024-10-12] MEDS ORDERED: TICAGRELOR 90 MG TABLET PO ONE (11:33)
[2024-10-12] MEDS ORDERED: CLOPIDOGREL 75 MG TABLET ONE (11:33)
[2024-10-12] MEDS ORDERED: ONDANSETRON 4 MG/2 ML VIAL IV PRN (18:57)
[2024-10-12] MEDS ORDERED: ACETAMINOPHEN 325 MG TABLET PO PRN (18:57)
--- NOTE | 2024-10-12 18:57 | P.HP ---
Certification for Inpatient Patient admitted to: Observation With expected LOS: <2 Midnights Practitioner: I am a practitioner with admitting privileges, knowledge of patient current condition, hospital course, and medical plan of care. Services: Services provided to patient in accordance with Admission requirements found in Title 42 Section 412.3 of the Code of Federal Regulations Patient History Date of Service: 10/12/24 Reason for admission: S/p peripheral artery intervention, syncope History of Present Illness: 79 yo male with past medical history of hypertension, hyperlipidemia, CAD, aortic valve insufficiency, peripheral arterial disease, had a stent placed in left SFA artery, history of low-grade prostate cancer status post prostatectomy/TURP came in with pain to left leg and ultrasound showing occlusion of the stent placed in July underwent SPORTS MARKETER to SFA left side and stenting by Dr. Garcia. In the PACU he had a syncopal episode after going to the bathroom. His blood pressure dropped and also had bradycardia and was admitted for further management and monitoring. Patient denies any chest pain or shortness of breath. No fever or chills. Allergies No Known Allergies Allergy (Verified 10/06/24 09:27) Home medications list reviewed: Yes Home Medications: Amlodipine Besylate 10 mg PO DAILY 01/22/23 Aspirin [Low Dose Aspirin EC] 81 mg PO DAILY 01/22/23 Finasteride [Proscar*] 5 mg PO DAILY 01/22/23 Isosorbide Mononitrate [Isosorbide Mononitrate ER] 30 mg PO DAILY 05/20/24 Nebivolol HCl [Bystolic*] 5 mg PO DAILY 05/20/24 Olmesartan Medoxomil 40 mg PO DAILY 05/20/24 - Past Medical/Surgical History Past Medical History: Reviewed- Non-Contributory -: Hypertension, hyperlipidemia, CAD, prostate cancer Past Surgical History: Reviewed- Non-Contributory - Social History Smoking Status: Never smoker Review of Systems 10-point ROS is otherwise unremarkable Physical Examination - Vital Signs Temperature: 97.2 F Blood Pressure: 169/69 Pulse: 57 Respirations: 16 - Physical Exam General: Alert, In no apparent distress, Oriented x3 HEENT: Atraumatic, Normocephalic Neck: No Thyromegaly Respiratory: Clear to auscultation bilaterally, Normal air movement Cardiovascular: No edema, Regular rate/rhythm, Normal S1 S2 Capillary refill: <2 Seconds Gastrointestinal: Soft and benign, W/out hepatosplenomegaly Musculoskeletal: No clubbing, No swelling Integumentary: No rashes, No tenderness/swelling Neurological: Normal speech, Cranial nerves 3-12 intact, Normal reflexes 2+, Normal affect Lymphatics: No axilla or inguinal lymphadenopathy Assessment and Plan - Problems (Diagnosis) (1) Syncope Current Visit: Yes Status: Acute - Plan Syncope Possible vasovagal Hypotension bradycardia resolved Monitor closely under telemetry in ICU Started on IV hydration Will hold beta-blockers for now Hypertension Antihypertensives titrated Continue home medications and titrate as needed Hyperlipidemia Continue statin CAD Continue home medications atorvastatin Will hold anticoagulant for now Will restart in a.m. Status post SPORTS MARKETER left SFA Will get an Doppler Pain control History of prostate cancer status post surgery Continue home medications and titrate as needed Anemia of chronic disease Monitor H&H closely No overt bleeding at this time Acute kidney injury IV hydration Monitor renal parameters in a.m. GI/DVT prophylaxis Advanced directive full code Discharge Plan: Home Plan to discharge in: 24 Hours - Advance Directives Does patient have a Living Will: Yes Does patient have a Durable POA for Healthcare: Yes - Code Status/Comfort Care Code Status: Full Code Time Spent Managing Pts Care (In Minutes): 48
--- OUTSIDE RECORDS SUMMARY | 2024-10-12 19:21 | XMS REPORT | Clinical Summary ---
Author Name Unknown Organization [facility] Address [address] [place] [address] Care Team Providers Care Classroom Coordinator Name Role Phone Eric Son MD Unavailable + [phone] Eric Son MD Unavailable + [phone] Azeem BLUE MD, John F Unavailable [phone] Sheldon Zambrano Unavailable Brendan Finney MD Unavailable [phone] Last Mcghee Unavailable Azeem BLUE MD, John F Primary Care Provider + [phone] Allergies No known active allergies Medications amLODIPine (NORVASC) 10 mg tablet daily. 0 Active finasteride (PROSCAR) 5 mg tablet daily. 0 Active losartan (COZAAR) 100 mg tablet daily. 0 Active turmeric (CURCUMIN MISC) 1 tablet by miscellaneous route daily. Active cholecalcifero l, vitamin D3, 25 mcg (1,000 unit) tablet Take 1,000 Units by mouth. 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 Gender Identity Male 04/18/2020 11:32 AM CDT Sexual Orientation Straight 04/18/2020 11 :32 AM CDT 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 on file Not on file Not on file Obstetrics History Plan of Treatment Health Maintenance Due Date Last Done Comments Pneumococcal Vaccine: 65+ Years (1 of 1 - PCV) 010 COVID-19 Vaccine (2023- season) 2024 Influenza Vaccine (#1) 2024 Insurance [employer] MEDICARE PPO [facility] Advance Directives Documents on File Type Date Recorded 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 Advance Directives: Living Will 04/13/2014 Historical Advance Directives: Medical Power of Heavy Threader 04/13/2014 Historical Care Teams Classroom Coordinator Relationship Specialty Start Date End Date Eric Son MD [address] [place] [address] PCP - External Referring 03/12/14 Eric Son MD [address] [place] [address] PCP - External Follow Up A 03/12/14 Juan Manuel Gann III, MD [address] [place] [id number] [email or web address] PCP - General Urology 01/25/20 Juan Manuel Gann III, MD [address] [place] [id number] [email or web address] Physician 01/18/16 Sheldon Zambrano PA [address] [place] [address]. [place] [address] [email or web address] Physician Medical Device Sales Representative 01/18/16 Brendan Finney MD [address] [place] [id number] [email or web address] Physician 01/18/16 Last Mcghee PA [address] [place] [id number] [email or web address] Physician Medical Device Sales Representative 01/18/16
[2024-10-12] MEDS: NA CHLORIDE 0.9% 1,000 ML IV SCH (20:13)
[2024-10-12 20:42] LABS: Absolute Eosinophils 0.1 K/uL (0-0.5); Absolute Lymphocytes (CBC) 0.8 K/uL (0.7-4.9); Absolute Monocytes 0.5 K/uL (0.1-1.3); Absolute Neutrophil 5.5 K/uL (1.8-8.0); Basophils % 0.2 % (0-1.3); Eosinophils % 0.9 % (0-4.4); Hemoglobin 9.3 g/dL (13.6-17.9); Lymphocytes % 11.3 % (15.3-44.8); MCH 22.4 pg (27.0-35.0); MCV 72.1 fL (80-100); MPV 7.7 fL (7.6-11.3); Monocytes % 7.2 % (3.3-12.3); Neutrophils % 80.4 % (41.7-73.7); Platelets 277 thou/uL (152-406); RBC Red Blood Cell Count 4.16 M/uL (4.33-5.43); Red Cell Distribution Width 17.9 % (12.1-15.2)
[2024-10-12 20:44] VITALS: O2SAT 95; BMI 28.1
[2024-10-12 20:57] LABS: Albumin 3.7 g/dL (3.4-5.0); Albumin/Globulin Ratio 1.3 (1.1-1.8); Anion Gap 7.8 mEq/L (5.0-15.0); Bilirubin Total 0.3 mg/dL (0.2-1.0); Globulin 2.8 g/dL (2.3-3.5); Potassium 3.8 mEq/L (3.5-5.1); Protein, Total 6.5 g/dL (6.4-8.2)
[2024-10-12 22:23] LABS: Specific Gravity 1.022 (1.005-1.030); Urine Bilirubin NEGATIVE (Negative); Urine Blood Negative (Negative); Urine Clarity Clear (Clear); Urine Color Colorless (Yellow); Urine Glucose 2+ (Negative); Urine Ketones NEGATIVE (Negative); Urine Microscopic Reflex YN NO UMIC; Urine Nitrite NEGATIVE (Negative); Urine Protein NEGATIVE (Negative); Urine Urobilinogen Normal (Normal); Urine pH 7.5 (5.0-7.0)
[2024-10-13 00:32] VITALS: TEMP 97.8
[2024-10-13 05:56] LABS: Absolute Eosinophils 0.1 K/uL (0-0.5); Absolute Lymphocytes (CBC) 1.1 K/uL (0.7-4.9); Absolute Monocytes 0.8 K/uL (0.1-1.3); Absolute Neutrophil 3.5 K/uL (1.8-8.0); Basophils % 0.5 % (0-1.3); Eosinophils % 2.4 % (0-4.4); Hematocrit 25.7 % (39.6-49.0); Hemoglobin 8.1 g/dL (13.6-17.9); Lymphocytes % 20.3 % (15.3-44.8); MCH 22.7 pg (27.0-35.0); MCHC 31.6 g/dL (32.0-36.0); MCV 71.8 fL (80-100); MPV 7.8 fL (7.6-11.3); Monocytes % 13.9 % (3.3-12.3); Neutrophils % 62.9 % (41.7-73.7); Platelets 228 thou/uL (152-406); RBC Red Blood Cell Count 3.58 M/uL (4.33-5.43)
[2024-10-13 06:10] LABS: ALT/SGPT 21 U/L (16-61); Albumin 3.2 g/dL (3.4-5.0); Albumin/Globulin Ratio 1.3 (1.1-1.8); Alkaline Phosphatase 60 U/L (45-117); Anion Gap 7.6 mEq/L (5.0-15.0); BUN Blood Urea Nitrogen 17 mg/dL (7-18); Bicarbonate 26 mEq/L (21-32); Bilirubin Total 0.2 mg/dL (0.2-1.0); Globulin 2.5 g/dL (2.3-3.5); Glomerular Filtration Rate 46 ml/min (=/>90); Glucose Level 99 mg/dL (74-106); Magnesium 2.3 mg/dL (1.6-2.4); Potassium 4.6 mEq/L (3.5-5.1); Protein, Total 5.7 g/dL (6.4-8.2); Sodium Level 140 mEq/L (136-145)
[2024-10-13 06:11] LABS: AST/SGOT < 10 U/L (15-37)
--- NOTE | 2024-10-13 07:10 | RAD REPORT ---
EXAM: Left lower extremity arterial ultrasound HISTORY: [facility] MAIN Left Lower extremity Left MARKETING ROTATION ASSOCIATE COMPARISON: None TECHNIQUE: Multiplanar grayscale and color Doppler images were obtained and a left lower extremity ar terial ultrasound. Spectral analysis of the Doppler waveforms were performed. FINDINGS: No significant calcified plaque is seen in the left lower extremity. Left lower extremity: Common femoral artery: Monophasic. Elevated peak systolic velocity of 333 cm/s. Superficial femoral artery: Monophasic Popliteal artery: Monophasic Posterior tibial artery: Monophasic Dorsalis pedis artery: Monophasic IMPRESSION: Monophasic arterial flow throughout the left lower extremity. Elevated peak systolic velocity in the left common femoral artery could indicate a high-grade stenosis in the left external iliac artery or proximal common femoral artery.
[2024-10-13] MEDS ORDERED: FLU (Fluarix Triv) TS24-25(6MOS UP)/PF 45 MCG/0.5 ML Syringe IM ONE (08:00)
[2024-10-13] MEDS ORDERED: FINASTERIDE 5 MG TAB PO SCH (09:00)
[2024-10-13] MEDS ORDERED: ASPIRIN EC 81 MG TAB PO SCH (09:00)
[2024-10-13] MEDS: NEBIVOLOL HCL 5 MG TAB PO SCH (09:12)
[2024-10-13] MEDS: ISOSORBIDE MONO SR 30 MG TAB PO SCH (09:12)
[2024-10-13 09:14] VITALS: BP 154/64
--- NOTE | 2024-10-13 10:21 | P.DS ---
Admission Date: 10/12/24 Discharge Date: 10/13/24 Disposition: ROUTINE DISCHARGE Discharge Condition: GOOD Reason for Admission: S/p peripheral artery intervention, syncope Brief History of Present Illness: This is a 79 yo male with past medical history of hypertension, hyperlipidemia, CAD, aortic valve insufficiency, peripheral arterial disease, had a stent placed in left SFA artery, history of low-grade prostate cancer status post prostatectomy/TURP came in with pain to left leg and ultrasound showing occlusion of the stent placed in July underwent OPERATIONS ADMINISTRATIVE ASSISTANT to SFA left side and stenting by Dr. Garcia. In the PACU he had a syncopal episode after going to the bathroom. His blood pressure dropped to 67/54 mmHg and also had bradycardia as low as 33/min and was admitted in ICU for further management and monitoring. Patient denies any chest pain or shortness of breath. Hospital Course: His hypertensive regimen were held and started on IV fluid. His blood pressure and heart rate rapid rate rapidly improved. There was no serious arrhythmia noted on telemetry, no clinical bleeding. Patient did not experience any more syncopal episode. His hemoglobin was a little down to 8.1 from 9.3, his BUN /creatinine stable around 17/1.5. He did not receive any transfusion. His nebivolol and isosorbide dinitrate were restarted the next morning. Patient remained stable after discontinue of IV fluid. Patient was discharged home and he is follow-up with his PCP and vascular surgeon after discharge as instructed. Discharge diagnosis #1 vasovagal syncope combined with medication induced orthostatic hypotension #2 peripheral artery disease with occlusion of stent of left lower extremity status post OPERATIONS ADMINISTRATIVE ASSISTANT and restenting to left superficial femoral artery on October 12, 2023 #3 stable CKD stage III #4 stable anemia of chronic disease Vital Signs/Physical Exam: Temp Pulse Resp BP Pulse Ox 97.8 F 72 19 154/64 H 95 10/13/24 00:00 10/13/24 09:12 10/13/24 06:00 10/13/24 09:12 10/13/24 06:00 Other Physical/Emotional Findings: - Physical Exam. General: Not acutely ill looking, in no apparent distress,. HEENT: Normocephalic, atraumatic, nonicteric sclera, nonanemic conjunctive. Neck: Supple, without JVD or goiter or thyroid mass. Respiratory: Normal breathing effort, clear to auscultation bilaterally, no crackles no wheezing or rhonchi. Cardiovascular: Regular rate and rhythm, S1, S2 normal, no murmur no gallop. Gastrointestinal: Normal bowel sounds, nondistended, nontender, No ascites, , No masses, no hepatosplenomegaly. Extremities l: No clubbing, No peripheral edema, good perfusion and warm of the left lower extremity, no sign of bleeding at operation site, no deformity, no muscle atrophy. Integumentary: No rashes, petechia, suspected lesions. Lymphatics: No axilla or cervical lymphadenopathy. Neurology; alert awake oriented x3, no focal neurologic deficit, normal affection . mood and behavior. Laboratory Data at Discharge: WBC 5.60 thou/uL (4.3-10.9) 10/13/24 05:20 Hgb 8.1 g/dL (13.6-17.9) L D 10/13/24 05:20 Hct 25.7 % (39.6-49.0) L 10/13/24 05:20 Plt Count 228 thou/uL (152-406) 10/13/24 05:20 PT 10.8 SECONDS (9.4-12.5) 10/06/24 09:45 INR 0.96 10/06/24 09:45 APTT 33.6 SECONDS (24.3-36.9) 10/06/24 09:45 Sodium 140 mEq/L (136-145) 10/13/24 05:20 Potassium 4.6 mEq/L (3.5-5.1) D 10/13/24 05:20 BUN 17 mg/dL (7-18) 10/13/24 05:20 Creatinine 1.54 mg/dL (0.70-1.30) H 10/13/24 05:20 Glucose 99 mg/dL (74-106) 10/13/24 05:20 Phosphorus 3.0 mg/dL (2.5-4.9) 10/13/24 05:20 Magnesium 2.3 mg/dL (1.6-2.4) 10/13/24 05:20 Total Bilirubin 0.2 mg/dL (0.2-1.0) 10/13/24 05:20 AST < 10 U/L (15-37) L 10/13/24 05:20 ALT 21 U/L (16-61) 10/13/24 05:20 Alkaline Phosphatase 60 U/L (45-117) 10/13/24 05:20 Home Medications: Amlodipine Besylate 10 mg PO DAILY 01/22/23 Aspirin [Low Dose Aspirin EC] 81 mg PO DAILY 01/22/23 Finasteride [Proscar*] 5 mg PO DAILY 01/22/23 Isosorbide Mononitrate [Isosorbide Mononitrate ER] 30 mg PO DAILY 05/20/24 Nebivolol HCl [Bystolic*] 5 mg PO DAILY 05/20/24 Olmesartan Medoxomil 40 mg PO DAILY 05/20/24 Nebivolol HCl [Bystolic*] 5 mg PO DAILY tab 10/13/24 Diet: AHA Activity: Ad carlene Followup: Justo Mccain DO, DO [Primary Care Provider] -
== END 2024-10-13 11:50 | disposition home or self-care (01) ==
LOC: CCL 11:00 → 3RD-ICU 18:57
PROVIDERS: ADMIT Family Medicine; ATTEND Internal Medicine
DX: R55 Syncope and collapse (principal); I95.2 Hypotension due to drugs; T50.995A Adverse effect of other drugs, medicaments and biological substances, initial encounter; I70.223 Atherosclerosis of native arteries of extremities with rest pain, bilateral legs; I73.9 Peripheral vascular disease, unspecified; I10 Essential (primary) hypertension; E78.5 Hyperlipidemia, unspecified; I25.10 Atherosclerotic heart disease of native coronary artery without angina pectoris; I35.1 Nonrheumatic aortic (valve) insufficiency; N17.9 Acute kidney failure, unspecified; N18.30 Chronic kidney disease, stage 3 unspecified; D63.1 Anemia in chronic kidney disease; Z85.46 Personal history of malignant neoplasm of prostate
CPT/HCPCS: 93005; 85025 ×3; 36415 ×2; 83735; 84100; 85610; 85730; 81003; 80053 ×2; 71046; 36200; 36245; 37224; 37226; 76937; 93926; G0379; C1893; C1760; G0269; C1725; C1769; J2003; J2250; J3010 ×2; J7040; J7030 ×2; G0378 ×2; C2623 ×3; 99152; 99153; J0461

== ENCOUNTER 2025-01-08 13:13 | Inpatient (IN) | payer OTHER ==
--- OUTSIDE RECORDS SUMMARY | 2025-01-08 13:16 | XMS REPORT | Clinical Summary ---
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 Gender Identity Male 04/18/2020 11:32 AM CDT Sexual Orientation Straight 04/18/2020 11 :32 AM CDT 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 Not on file Not on file Obstetrics History Plan of Treatment Health Maintenance Due Date Last Done Comments Pneumococcal Vaccine: 50+ Years (1 of 1 - PCV) 995 COVID-19 Vaccine (2023- season) 2024 Influenza Vaccine (#1) 2024 Insurance MEDICARE PPO [facility] Advance Directives Documents on File Type Date Recorded 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 Advance Directives: Living Will 04/13/2014 Historical Advance Directives: Medical Power of Nut Orchardist 04/13/2014 Historical Care Teams Planograph Operator Relationship Specialty Start Date End Date Eric Son MD [address] [place], [place] [address] PCP - External Referring 03/12/14 Eric Son MD [address] [place] [address] PCP - External Follow Up A 03/12/14 Juan Manuel Gann III, MD [address] [place] [id number] [email or web address] PCP - General Urology 01/25/20 Juan Manuel Gann III, MD [address] [place] [id number] [email or web address] Physician 01/18/16 Sheldon Zambrano PA [address] [place] [address]. [place] [address] [email or web address] Physician Grid Inspector 01/18/16 Brendan Finney MD [address] [place] [id number] [email or web address] Physician 01/18/16 Last Mcghee PA [address] [place] [id number] [email or web address] Physician Grid Inspector 01/18/16
--- NOTE | 2025-01-08 13:51 | RAD REPORT ---
EXAM: CT brain without contrast HISTORY: SYNCOPE COMPARISON: None TECHNIQUE: Multiple contiguous axial images were obtained and a CT of the brain without contrast. Sag ittal and coronal reformats were performed. One or more of the following dose reduction techniques were used: Automated exposure control, adjust ment of the mA and/or kV according to patient size, and/or iterative reconstruction. FINDINGS: No evidence of hydrocephalus, intracranial hemorrhage, or extra-axial fluid collection. The brain is normal in morphology. No evidence of midline shift or areas of brain edema. The calvarium is intact. The visualized paranasal sinuses and mastoid air cells are essentially clear . IMPRESSION: No evidence of acute intracranial abnormality.
--- NOTE | 2025-01-08 13:55 | RAD REPORT ---
EXAMINATION: ONE VIEW CHEST XR CLINICAL INDICATION: syncope TECHNIQUE: Frontal chest projection is submitted. Examination is limited by patient positioning and t echnique. COMPARISON: 10/06/2024 FINDINGS: The lungs are well inflated and clear. The heart is upper limit of normal in size. No displaced fract ures identified. IMPRESSION: No acute intrathoracic abnormalities.
[2025-01-08 14:16] LABS: Absolute Eosinophils 0.1 K/uL (0-0.5); Absolute Lymphocytes (CBC) 0.7 K/uL (0.7-4.9); Absolute Monocytes 0.5 K/uL (0.1-1.3); Absolute Neutrophil 3.9 K/uL (1.8-8.0); Basophils % 0.5 % (0-1.3); Eosinophils % 1.3 % (0-4.4); Hematocrit 27.7 % (39.6-49.0); Hemoglobin 8.4 g/dL (13.6-17.9); Lymphocytes % 14.4 % (15.3-44.8); MCH 18.6 pg (27.0-35.0); MCHC 30.3 g/dL (32.0-36.0); MCV 61.4 fL (80-100); MPV 8.7 fL (7.6-11.3); Monocytes % 9.2 % (3.3-12.3); Neutrophils % 74.6 % (41.7-73.7); Platelets 283 thou/uL (152-406); RBC Red Blood Cell Count 4.51 M/uL (4.33-5.43); Red Cell Distribution Width 19.1 % (12.1-15.2)
[2025-01-08 14:22] LABS: PT Prothrombin Time 11.2 SECONDS (10.0-13.0); PTT, Activated Partial Thromb 23.6 SECONDS (24.3-36.9); Protime INR 0.98
[2025-01-08 14:44] LABS: ALT/SGPT 28 U/L (16-61); AST/SGOT 13 U/L (15-37); Albumin 4.1 g/dL (3.4-5.0); Albumin/Globulin Ratio 1.4 (1.1-1.8); Alkaline Phosphatase 66 U/L (45-117); Anion Gap 8.2 mEq/L (5.0-15.0); BUN Blood Urea Nitrogen 25 mg/dL (7-18); Bicarbonate 26 mEq/L (21-32); Bilirubin Total 0.4 mg/dL (0.2-1.0); Glomerular Filtration Rate 41 ml/min (=/>90); Glucose Level 135 mg/dL (74-106); Magnesium 2.3 mg/dL (1.6-2.4); Potassium 4.2 mEq/L (3.5-5.1); Protein, Total 7.1 g/dL (6.4-8.2); Sodium Level 138 mEq/L (136-145); Troponin High Sensitivity 9.5 pg/mL (<58.9)
[2025-01-08 14:45] LABS: Bilirubin Direct < 0.2 mg/dL (0-0.2); Bilirubin Indirect, Calculated 0.2 mg/dL (0.2-0.8)
[2025-01-08 16:26] LABS: Blood Morphology Comment NOTED (NOT SEEN); Hypochromasia 2+; Microcytosis 2+; Platelet Estimate ADEQ; Polychromasia 1+; White Blood Cell Scan OK (OK)
[2025-01-08] MEDS ORDERED: NA CHLORIDE 0.9% 1,000 ML ONE (16:53)
[2025-01-08] MEDS ORDERED: ONDANSETRON 4 MG/2 ML VIAL IV PRN (17:14)
[2025-01-08] MEDS ORDERED: ACETAMINOPHEN 325 MG TABLET PO PRN (17:15)
--- NOTE | 2025-01-08 17:22 | ER ---
Nurse's Notes [facility] Name: Anurag Hopper Age: 79 yrs Sex: Male : 1945 Arrival Date: 01/08/2025 Time: 13:13 Bed 19 Private MD: Diagnosis: Syncope Near;Bradycardia, unspecified Presentation: 01/08 13:27 Acuity: TERRY 2 aa5 13:27 Coronavirus screen: At this time, the client does not indicate any symptoms associated aa5 with coronavirus-19. Ebola Screen: Patient denies travel to an Ebola-affected area in the 21 days before illness onset. Initial Sepsis Screen: Does the patient meet any 2 criteria? No. Patient's initial sepsis screen is negative. Does the patient have a suspected source of infection? No. Patient's initial sepsis screen is negative. Risk Assessment: Do you want to hurt yourself or someone else? Patient reports no desire to harm self or others. Onset of symptoms was January 08, 2025. 13:27 Method Of Arrival: EMS: [facility] aa5 13:27 Chief complaint: EMS states: Pt was at [facility] pharmacy and had near syncope, was standing aa5 and started feeling dizzy. EMS reports pt was pale upon scene arrival with Sinus Bradycardia 39-40 bpm, administered atropine 0.5 mg IVP with improvement of HR to 58 bpm, also received 250mls NS bolus IVPB. Historical: - Allergies: 13:27 No Known Allergies; aa5 - Home Meds: 14:55 amlodipine 10 mg tablet 2 times per day [Active]; atorvastatin 40 mg Oral tablet daily aa5 [Active]; clopidogrel 75 mg Oral tablet daily [Active]; Eliquis 2.5 mg oral tablet [Active]; finasteride 5 mg Oral tablet daily [Active]; isosorbide mononitrate 30 mg oral Tablet, Extended Release 24 hr [Active]; Myrbetriq 8 mg/mL oral suspension, ER, reconstituted [Active]; nebivolol 5 mg oral tablet daily [Active]; olmesartan 40 mg oral tablet [Active]; - PMHx: 13:27 Hypertensive disorder; Prostate problems.; aa5 - PSHx: 13:27 TURP; heart stents; stents to left leg; aa5 - Immunization history:: Adult Immunizations unknown. - Infectious Disease History:: Denies. - Social history:: Smoking status: Patient denies any tobacco usage or history of. Screenin:27 [facility] ED Fall Risk Assessment (Adult) History of falling in the last 3 months, aa5 including since admission No falls in past 3 months (0 pts) Confusion or Disorientation No (0 pts) Intoxicated or Sedated No (0 pts) Impaired Gait No (0 pts) Mobility Assist Device Used No (0 pt) Altered Elimination No (0 pt) Score/Fall Risk Level 0 - 2 = Low Risk Oriented to surroundings, Maintained a safe environment, Educated pt \\T\\ family on fall prevention, incl call for assistance when getting out of bed, Assessed \\T\\ reinforced patient's understanding of fall precautions. Abuse screen: Denies threats or abuse. Nutritional screening: No deficits noted. Tuberculosis screening: No symptoms or risk factors identified. Assessment: 13:27 General: Appears comfortable, Behavior is calm, cooperative. Pain: Denies pain. Neuro: aa5 Level of Consciousness is awake, alert, obeys commands, Oriented to person, place, time, situation, Social Professionals are equal bilaterally Moves all extremities. Speech is normal, Facial symmetry appears normal, Pt currently denies dizziness, pt states "I feel normal now" . Cardiovascular: Denies chest pain, diaphoresis, lightheadedness, nausea, palpitations, shortness of breath, Heart tones S1 S2 present Rhythm is sinus bradycardia. Respiratory: Airway is patent Respiratory effort is even, unlabored, Respiratory pattern is regular, symmetrical. GI: No signs and/or symptoms were reported involving the gastrointestinal system. : No signs and/or symptoms were reported regarding the genitourinary system. EENT: No signs and/or symptoms were reported regarding the EENT system. Derm: Skin is pink, warm \\T\\ dry. Musculoskeletal: Range of motion: intact in all extremities. 13:41 Reassessment: Pt to CT . aa5 14:10 Reassessment: Patient is alert, oriented x 3, equal unlabored respirations, skin aa5 warm/dry/pink. Patient denies pain at this time. 14:10 Cardiovascular: Rhythm is sinus bradycardia. aa5 15:00 Reassessment: Patient is alert, oriented x 3, equal unlabored respirations, skin aa5 warm/dry/pink. Patient denies pain at this time. 16:00 Reassessment: Patient is alert, oriented x 3, equal unlabored respirations, skin aa5 warm/dry/pink. Awaiting disposition, pt requesting to speak to provider, SANTOSH was notified. . 17:09 Reassessment: Patient is alert, oriented x 3, equal unlabored respirations, skin aa5 warm/dry/pink. Pt sitting up in bed eating dinner now. . 18:25 Reassessment: Patient is alert, oriented x 3, equal unlabored respirations, skin aa5 warm/dry/pink. Cardiovascular: Rhythm is sinus bradycardia. Vital Signs: 13:27 BP 161 / 54; Pulse 64; Resp 16 S; Temp 97.5(TE); Pulse Ox 97% on R/A; aa5 14:50 BP 159 / 60 Supine; Pulse 54; nh2 14:50 BP 155 / 62 Sitting; Pulse 54; nh2 14:51 BP 140 / 62 Standing; Pulse 67; nh2 15:03 BP 164 / 60; Pulse 57; Resp 20 S; Pulse Ox 100% on R/A; aa5 16:00 BP 163 / 54; Pulse 52; Resp 15 S; Pulse Ox 98% on R/A; aa5 18:20 BP 163 / 46; Pulse 57; Resp 18 S; Pulse Ox 100% on R/A; aa5 NIH Stroke Scale Scores: 13:45 NIHSS Score: 0 cp ED Course: 13:27 Patient arrived in ED. jl7 13:27 Ariel Mcghee MD is Attending Physician. sp3 13:27 Arm band placed on Patient placed in an exam room, on a stretcher. aa5 13:27 Patient has correct armband on for positive identification. Placed in gown. Bed in low aa5 position. Call light in reach. Side rails up X2. Client placed on continuous cardiac and pulse oximetry monitoring. NIBP monitoring applied. child monitor on. Pulse ox on. NIBP on. 13:28 Connie Lynn, ARSENIO is Primary Nurse. aa5 13:31 Logan Santana PA is PHCP. cp 13:39 EKG done, by ED staff, reviewed by Logan FROST. aa5 13:42 Triage completed. aa5 13:47 CT Head Brain wo Cont In Process Unspecified. EDMS 13:49 Chest Single View XRAY In Process Unspecified. EDMS 14:12 Maintain EMS IV. Dressing intact. Good blood return noted. Site clean \\T\\ dry. Gauge \\T\\ nh 2 site: 18 G RAC. Flushed with 10 mL NS. 14:13 Initial lab(s) drawn, by me, sent to lab. nh2 14:16 Basic Metabolic Panel Sent. nh2 14:17 CBC with Diff Sent. nh2 14:17 Hepatic Function Sent. nh2 14:17 Magnesium Sent. nh2 14:17 Protime (+inr) Sent. nh2 14:17 Ptt, Activated Sent. nh2 14:17 Troponin High Sensitivity Sent. nh2 17:21 Karin Farnsworth MD is Hospitalizing Provider. cp 22:49 No provider procedures requiring assistance completed. Patient admitted, IV remains in ha1 place. Administered Medications: 17:00 Drug: NS 0.9% IV 1000 ml IV at 1000 ml once; to be given as a bolus over 60 minutes aa5 Route: IV; Rate: 1000 ml; Site: right antecubital; 18:00 Follow up: IV Status: Completed infusion; IV Intake: 1000ml aa5 Medication: 14:18 VIS not applicable for this client. aa5 Intake: 18:00 IV: 1000ml; Total: 1000ml. aa5 Outcome: 17:22 Decision to Hospitalize by Provider. cp 22:49 Admitted to Tele accompanied by tech, via wheelchair, room 408, with chart, [facility] 22:49 Condition: stable 22:49 Instructed on the need for admit, Demonstrated understanding of instructions, 22:50 Patient left the ED. [facility] NIH Stroke Scale - NIH Stroke Score Date: 01/08/2025 Time: 13:45 Total Score = 0 10. Dysarthria (speech clarity - read or repeat words) - 0(Normal) 11. Extinction and Inattention (visual/tactile/auditory/spatial/personal) - 0(No abnormality) 1a. Level of Consciousness (LOC) - 0(Alert) 1b. Level of Consciousness (LOC) (Month \\T\\ Age) - 0(Both) 1c. LOC Commands (Open \\T\\ Closes Eyes/Burn Nurse) - 0(Both) 2. Best Gaze (Lateral Gaze Paresis) - 0(Normal) 3. Visual Field Loss - 0(No visual loss) 4. Facial Palsy - 0(Normal) 5a. Left Arm: Motor (10-second hold) - 0(No drift) 5b. Right Arm: Motor (10-second hold) - 0(No drift) 6a. Left Leg: Motor (5-second hold - always test supine) - 0(No drift) 6b. Right Leg: Motor (5-second hold - always test supine) - 0(No drift) 7. Limb Ataxia (finger/nose \\T\\ heel/arevalo - test with eyes open) - 0(Absent) 8. Sensory Loss (pinprick arms/legs/face) - 0(Normal) 9. Best Language: Aphasia (description/naming/reading) - 0(No aphasia) Initials: cp Signatures: Dispatcher [employer] EDMS Connie Lynn RN RN aa5 Logan Santana PA PA cp Leal, Jahala, RN RN jl7 Ariel Mcghee MD MD sp3 Danii Velásquez RN RN ha1 Rangel Henderson, [facility] Corrections: (The following items were deleted from the chart) 13:46 13:40 EKG done, by ED staff, reviewed by Connie Lynn RN aa5 aa5 15:00 14:55 Home Meds: tamsulosin 0.4 mg oral capsule; aa5 aa5 18:59 13:39 EKG done, by ED staff, reviewed by Connie Lynn RN aa5 aa5
--- NOTE | 2025-01-08 17:23 | EDPHYS ---
Physician Documentation [facility] Name: Anurag Hopper Age: 79 yrs Sex: Male : 1945 Arrival Date: 01/08/2025 Time: 13:13 Bed 19 Private MD: ED Physician Ariel Mcghee HPI: 01/08 13:40 This 79 yrs old Male presents to ER via Unassigned with complaints of Near Syncope. cp 13:40 The patient has experienced near-syncope, almost passed out, felt generally weak. cp Onset: The symptoms/episode began/occurred just prior to arrival. Duration: This was a single episode. Context: the episode(s) was witnessed, by a bystander, occurred at a store, occurred while the patient was standing, Just prior to the episode the patient experienced no apparent symptoms. Associated injury: The patient did not suffer any apparent associated injury. Current symptoms: Currently, the patient is not experiencing any symptoms, the patient feels back to baseline. 13:40 EMS reports patient was at [facility] pharmacy when he was observed to have near syncopal cp episode. EMS reports HR in the 30's upon their arrival and 0.5mg Atropine was administered. Historical: - Allergies: 13:27 No Known Allergies; aa5 - Home Meds: 14:55 amlodipine 10 mg tablet 2 times per day [Active]; atorvastatin 40 mg Oral tablet daily aa5 [Active]; clopidogrel 75 mg Oral tablet daily [Active]; Eliquis 2.5 mg oral tablet [Active]; finasteride 5 mg Oral tablet daily [Active]; isosorbide mononitrate 30 mg oral Tablet, Extended Release 24 hr [Active]; Myrbetriq 8 mg/mL oral suspension, ER, reconstituted [Active]; nebivolol 5 mg oral tablet daily [Active]; olmesartan 40 mg oral tablet [Active]; - PMHx: 13:27 Hypertensive disorder; Prostate problems.; aa5 - PSHx: 13:27 TURP; heart stents; stents to left leg; aa5 - Immunization history:: Adult Immunizations unknown. - Infectious Disease History:: Denies. - Social history:: Smoking status: Patient denies any tobacco usage or history of. ROS: 13:41 Constitutional: Negative for fever, cp 13:41 Cardiovascular: Negative for chest pain, palpitations, 13:41 Respiratory: Negative for cough, shortness of breath, wheezing, 13:41 Abdomen/GI: Negative for abdominal pain, vomiting, diarrhea, constipation, 13:41 Neuro: Positive for near syncope, weakness, Negative for altered mental status, headache, seizure activity, speech changes, 13:41 Eyes: Negative for injury, pain, redness, and discharge, cp 13:41 All other systems are negative, Exam: 13:45 Head/Face: Normocephalic, atraumatic. cp 13:45 Constitutional: The patient appears in no acute distress, alert, awake, comfortable, non-diaphoretic, non-toxic, well developed, well nourished, 13:45 Eyes: Periorbital structures: appear normal, Pupils: equal, round, and reactive to cp light and accomodation, Extraocular movements: intact throughout, Conjunctiva: normal, no exudate, no injection, Sclera: no appreciated abnormality, Lids and lashes: appear normal, bilaterally, 13:45 ENT: External ear(s): are unremarkable, Nose: is normal, Mouth: Lips: moist, Oral mucosa: pink and intact, moist, Posterior pharynx: Airway: no evidence of obstruction, patent, 13:45 Neck: ROM/movement: is normal, is supple, without pain, no range of motions limitations, no meningismus, no nuchal rigidity, 13:45 Chest/axilla: Inspection: normal, 13:45 Cardiovascular: Rate: bradycardic, Rhythm: regular, Edema: is not appreciated, JVD: is not appreciated, 13:45 Respiratory: the patient does not display signs of respiratory distress, Respirations: normal, no use of accessory muscles, no retractions, labored breathing, is not present, Breath sounds: are clear throughout, no decreased breath sounds, no stridor, no wheezing, 13:45 Abdomen/GI: Inspection: abdomen appears normal, Palpation: abdomen is soft and non-tender, in all quadrants, 13:45 Skin: no rash present. 13:45 Neuro: Orientation: to person, place \T\ time. Mentation: is normal, Motor: moves all fours, strength is normal, Sensation: is normal, Vital Signs: 13:27 BP 161 / 54; Pulse 64; Resp 16 S; Temp 97.5(TE); Pulse Ox 97% on R/A; aa5 14:50 BP 159 / 60 Supine; Pulse 54; nh2 14:50 BP 155 / 62 Sitting; Pulse 54; nh2 14:51 BP 140 / 62 Standing; Pulse 67; nh2 15:03 BP 164 / 60; Pulse 57; Resp 20 S; Pulse Ox 100% on R/A; aa5 16:00 BP 163 / 54; Pulse 52; Resp 15 S; Pulse Ox 98% on R/A; aa5 18:20 BP 163 / 46; Pulse 57; Resp 18 S; Pulse Ox 100% on R/A; aa5 NIH Stroke Scale Scores: 13:45 NIHSS Score: 0 cp MDM: 13:27 Medical Screening Exam initiated sp3 16:45 Data reviewed: vital signs, nurses notes, lab test result(s), EKG, radiologic studies, cp CT scan, plain films, and as a result, I will admit patient. 16:45 Differential Diagnosis: aortic aneurysm, drug effect, GI bleed, seizure, sepsis, cp vasovagal episode. I considered the following discharge prescriptions or medication management in the emergency department ems administered 0.5 mg Atropine. Independent interpretation of the following test(s) in the Emergency Department EKG: See my EKG interpretation above. Historians other than the Patient: EMS: provided hpi. Care significantly affected by the following chronic conditions: Hypertension. Counseling: I had a detailed discussion with the patient and/or guardian regarding the historical points, exam findings, and any diagnostic results supporting the discharge/admit diagnosis, lab results, radiology results. Response to treatment: the patient's symptoms have markedly improved after treatment. 01/08 13:28 Order name: Basic Metabolic Panel; Complete Time: 16:07 sp3 01/08 16:07 Interpretation: Normal except: CL 108; GLUC 135; BUN 25; CRE 1.69; GFR 41. cp 01/08 13:28 Order name: CBC with Diff; Complete Time: 16:29 sp3 01/08 16:07 Interpretation: Normal except: HGB 8.4; HCT 27.7; MCV 61.4; MCH 18.6; MCHC 30.3; RDW cp 19.1; ERIC% 74.6; LYM% 14.4. 01/08 13:28 Order name: Hepatic Function; Complete Time: 16:07 sp3 01/08 16:07 Interpretation: Normal except: AST 13. cp 01/08 13:28 Order name: Magnesium; Complete Time: 16:07 sp3 01/08 13:28 Order name: Protime (+inr); Complete Time: 16:07 sp3 01/08 13:28 Order name: Ptt, Activated; Complete Time: 16:07 sp3 01/08 13:28 Order name: Troponin High Sensitivity; Complete Time: 16:07 sp3 01/08 13:28 Order name: Urinalysis w/ reflexes sp3 01/08 14:19 Order name: CBC Smear Scan; Complete Time: 16:29 EDMS 01/08 16:57 Order name: Urinalysis w/ reflexes EDMS 01/08 16:57 Order name: Basic Metabolic Panel EDMS 01/08 16:57 Order name: Basic Metabolic Panel EDMS 01/08 16:57 Order name: Basic Metabolic Panel EDMS 01/08 16:57 Order name: Basic Metabolic Panel EDMS 01/08 16:57 Order name: Basic Metabolic Panel EDMS 01/08 16:57 Order name: Basic Metabolic Panel EDMS 01/08 16:57 Order name: Basic Metabolic Panel EDMS 01/08 16:57 Order name: Basic Metabolic Panel EDMS 01/08 16:57 Order name: CBC with Automated Diff EDMS 01/08 16:57 Order name: CBC with Automated Diff EDMS 01/08 16:57 Order name: CBC with Automated Diff EDMS 01/08 16:57 Order name: CBC with Automated Diff EDMS 01/08 16:57 Order name: CBC with Automated Diff EDMS 01/08 16:57 Order name: CBC with Automated Diff EDMS 01/08 16:57 Order name: CBC with Automated Diff EDMS 01/08 16:57 Order name: CBC with Automated Diff EDMS 01/08 16:57 Order name: Magnesium EDMS 01/08 16:57 Order name: Magnesium EDMS 01/08 16:57 Order name: Magnesium EDMS 01/08 16:57 Order name: Magnesium EDMS 01/08 16:57 Order name: Magnesium EDMS 01/08 16:57 Order name: Magnesium EDMS 01/08 16:57 Order name: Magnesium EDMS 01/08 16:57 Order name: Magnesium EDMS 01/08 17:01 Order name: Ferritin EDMS 01/08 17:01 Order name: Transferrin Sat/Iron Binding EDMS 01/08 21:15 Order name: Retic Count EDMS 01/08 13:28 Order name: CT Head Brain wo Cont; Complete Time: 13:55 sp3 01/08 16:09 Interpretation: Report reviewed. cp 01/08 13:28 Order name: Chest Single View XRAY; Complete Time: 13:55 sp3 01/08 13:28 Order name: EKG; Complete Time: 13:29 sp3 01/08 13:28 Order name: Cardiac monitoring; Complete Time: 13:46 sp3 01/08 13:28 Order name: EKG - Nurse/Tech; Complete Time: 13:46 sp3 01/08 13:28 Order name: IV Saline Lock; Complete Time: 14:06 sp3 01/08 13:28 Order name: Labs collected and sent; Complete Time: 14:06 sp3 01/08 13:28 Order name: NPO; Complete Time: 13:46 sp3 01/08 13:28 Order name: O2 Per Protocol; Complete Time: 13:46 sp3 01/08 13:28 Order name: O2 Sat Monitoring; Complete Time: 13:46 sp3 01/08 13:28 Order name: Orthostatics; Complete Time: 14:50 sp3 Administered Medications: 17:00 Drug: NS 0.9% IV 1000 ml IV at 1000 ml once; to be given as a bolus over 60 minutes aa5 Route: IV; Rate: 1000 ml; Site: right antecubital; 18:00 Follow up: IV Status: Completed infusion; IV Intake: 1000ml aa5 Disposition Summary: 01/08/25 17:22 Hospitalization Ordered Notes: Hospitalization Status: Observation cp Provider: Karin Farnsworth cp Location: Telemetry/MedSurg (observation) cp Condition: Stable cp Problem: new cp Symptoms: have improved cp Bed/Room Type: Standard cp Room Assignment: 408(01/08/25 21:23) kl Diagnosis - Syncope Near cp - Bradycardia, unspecified cp Forms: - Medication Reconciliation Form cp - SBAR form cp - Leadership Thank You Letter cp NIH Stroke Scale - NIH Stroke Score Date: 01/08/2025 Time: 13:45 Total Score = 0 10. Dysarthria (speech clarity - read or repeat words) - 0(Normal) 11. Extinction and Inattention (visual/tactile/auditory/spatial/personal) - 0(No abnormality) 1a. Level of Consciousness (LOC) - 0(Alert) 1b. Level of Consciousness (LOC) (Month \T\ Age) - 0(Both) 1c. LOC Commands (Open \T\ Closes Eyes/Svp) - 0(Both) 2. Best Gaze (Lateral Gaze Paresis) - 0(Normal) 3. Visual Field Loss - 0(No visual loss) 4. Facial Palsy - 0(Normal) 5a. Left Arm: Motor (10-second hold) - 0(No drift) 5b. Right Arm: Motor (10-second hold) - 0(No drift) 6a. Left Leg: Motor (5-second hold - always test supine) - 0(No drift) 6b. Right Leg: Motor (5-second hold - always test supine) - 0(No drift) 7. Limb Ataxia (finger/nose \T\ heel/arevalo - test with eyes open) - 0(Absent) 8. Sensory Loss (pinprick arms/legs/face) - 0(Normal) 9. Best Language: Aphasia (description/naming/reading) - 0(No aphasia) Initials: cp Signatures: Dispatcher [employer] EDMS Theresa Delacruz RN RN kl Calderon, Audri, RN RN aa5 Logan Santana PA PA cp Patel, Setul, MD MD sp3 Corrections: (The following items were deleted from the chart) 15:00 14:55 Home Meds: tamsulosin 0.4 mg oral capsule; aa5 aa5 21:23 17:22 gabrielle hebert
[2025-01-08] MEDS: SOD FERRIC GLUC COMPLX/SUCROSE 125 MG in NA CHLORIDE 0.9% 100 ML IV SCH (17:30)
--- NOTE | 2025-01-08 17:59 | P.HP ---
Certification for Inpatient Patient admitted to: Inpatient Practitioner: I am a practitioner with admitting privileges, knowledge of patient current condition, hospital course, and medical plan of care. Services: Services provided to patient in accordance with Admission requirements found in Title 42 Section 412.3 of the Code of Federal Regulations Patient History Date of Service: 01/08/25 Reason for admission: Syncope History of Present Illness: 79 with history of peripheral artery disease, multiple left lower extremity stents, admitted for syncopal episode which occurred while he was standing at [facility] pharmacy. Per patient, he was unsure how long he passed out but he found himself on a chair. Feeling woozy. EMS was called and he was noted to be hypotensive with pulse in the 30s so given 0.5 mg of atropine. Pulse improved to the 50s, patient was then brought to the ED. In the ER, SBP in the 150s and pulse in the 50s. EKG also showed bradycardia with pulse in the 50s. Of note, patient was discharged from our facility 2 months ago, then also had a postoperative syncopal episode with bradycardia and hypotension which resolved spontaneously overnight with supportive therapy. Allergies No Known Allergies Allergy (Verified 10/06/24 09:27) Home Medications: RX: Amlodipine Besylate 10 mg PO DAILY 01/22/23 RX: Aspirin [Low Dose Aspirin EC] 81 mg PO DAILY 01/22/23 RX: Finasteride [Proscar*] 5 mg PO DAILY 01/22/23 RX: Isosorbide Mononitrate [Isosorbide Mononitrate ER] 30 mg PO DAILY 05/20/24 RX: Nebivolol HCl [Bystolic*] 5 mg PO DAILY 05/20/24 RX: Olmesartan Medoxomil 40 mg PO DAILY 05/20/24 RX: Nebivolol HCl [Bystolic*] 5 mg PO DAILY tab 10/13/24 - Past Medical/Surgical History Diabetic: No -: Hypertension, hyperlipidemia, CAD, prostate cancer -: CAD -: Illiac pain -: lower back arthritis -: Cholesystectomy -: appendectomy -: rotator cuff surgery -: TURP -: CABG -: STENTS left leg - Social History Alcohol use: No CD- Drugs: No Caffeine use: No Review of Systems 10-point ROS is otherwise unremarkable Physical Examination - Physical Exam General: Alert, Oriented x3 HEENT: Atraumatic Neck: Supple Respiratory: Clear to auscultation bilaterally Cardiovascular: No edema, Regular rate/rhythm, Normal S1 S2 Gastrointestinal: Normal bowel sounds Musculoskeletal: No clubbing, No swelling, No contractures Neurological: Normal speech Lymphatics: No axilla or inguinal lymphadenopathy External genitalia: No edema - Studies Laboratory Data (last 24 hrs) 01/08/25 01/08/25 01/08/25 13:59 13:59 13:59 WBC 5.20 Hgb 8.4 L Hct 27.7 L Plt Count 283 PT 11.2 INR 0.98 APTT 23.6 L Sodium 138 Potassium 4.2 BUN 25 H Creatinine 1.69 H Glucose 135 H Magnesium 2.3 Total Bilirubin 0.4 AST 13 L ALT 28 Alkaline Phosphatase 66 Assessment and Plan - Plan 1. Syncope secondary to symptomatic bradycardia -Likely from polypharmacy, on on nebivolol -Per EMS report, pulse 130s so received 0.5 mg of atropine with improvement in pulse to the 50s -EKG showed sinus bradycardia in the 50s -Will discontinue nebivolol -Monitor overnight on telemetry -Check orthostatic vital signs -Cardiology was consulted by ED 2. History of peripheral artery disease with multiple stents in the left lower extremity -Resume aspirin and Eliquis 3. Iron deficiency anemia likely secondary to chronic blood loss anemia -Hemoglobin recently stable, was 8.1 two months ago -Hemoglobin currently at 8.4, with low MCV of 61 -Ordered iron panel -Also ordered IV iron daily x 3 days 4. History of essential hypertension -Resume home meds amlodipine and ARB 5. History of BPH status post recent TURP 6. History of hyperlipidemia -Resume statin at home dose 7. DVT prophylaxis -On Eliquis 8. Patient is full code - Advance Directives Does patient have a Living Will: Yes Does patient have a Durable POA for Healthcare: Yes - Code Status/Comfort Care Code Status: Full Code
[2025-01-08] MEDS: APIXABAN 2.5 MG TABLET PO SCH (21:00)
[2025-01-08] MEDS: AMLODIPINE 5 MG TAB PO SCH (21:00)
[2025-01-08] MEDS: ATORVASTATIN 20 MG TAB PO SCH (21:00)
[2025-01-08 21:14] LABS: Percent Reticulocyte Count 1.26 % (0.4-2.05); RBC Red Blood Cell Count 4.4 M/uL (4.33-5.43)
[2025-01-08 21:24] LABS: Ferritin 6.4 ng/mL (26-388)
[2025-01-08] MEDS ORDERED: AMLODIPINE 5 MG TAB ONE (21:41)
[2025-01-08] MEDS ORDERED: ATORVASTATIN 20 MG TAB ONE (21:41)
[2025-01-08] MEDS ORDERED: APIXABAN 2.5 MG TABLET ONE (21:41)
[2025-01-08 23:47] LABS: Absolute Eosinophils 0.1 K/uL (0-0.5); Absolute Lymphocytes (CBC) 1.5 K/uL (0.7-4.9); Absolute Monocytes 0.8 K/uL (0.1-1.3); Absolute Neutrophil 4.2 K/uL (1.8-8.0); Basophils % 0.5 % (0-1.3); Eosinophils % 1.1 % (0-4.4); Hematocrit 27.7 % (39.6-49.0); Hemoglobin 8.2 g/dL (13.6-17.9); Lymphocytes % 22.7 % (15.3-44.8); MCH 18.3 pg (27.0-35.0); MCHC 29.7 g/dL (32.0-36.0); MCV 61.5 fL (80-100); MPV 8.5 fL (7.6-11.3); Monocytes % 12.5 % (3.3-12.3); Neutrophils % 63.2 % (41.7-73.7); Platelets 268 thou/uL (152-406); Red Cell Distribution Width 19.2 % (12.1-15.2)
[2025-01-08 23:58] VITALS: BMI 29.0
[2025-01-09] MEDS: HYDRALAZINE HCL 20 MG/ML VIAL IV PRN
[2025-01-09 00:18] LABS: Anion Gap 8.9 mEq/L (5.0-15.0); Potassium 3.9 mEq/L (3.5-5.1)
[2025-01-09 03:24] LABS: Specific Gravity 1.006 (1.005-1.030); Urine Bilirubin NEGATIVE (Negative); Urine Blood Negative (Negative); Urine Clarity Clear (Clear); Urine Color Colorless (Yellow); Urine Glucose NEGATIVE (Negative); Urine Ketones NEGATIVE (Negative); Urine Microscopic Reflex YN NO UMIC; Urine Nitrite NEGATIVE (Negative); Urine Protein NEGATIVE (Negative); Urine Urobilinogen Normal (Normal); Urine pH 6.5 (5.0-7.0)
[2025-01-09 05:14] LABS: Absolute Eosinophils 0.1 K/uL (0-0.5); Absolute Lymphocytes (CBC) 0.9 K/uL (0.7-4.9); Absolute Monocytes 0.6 K/uL (0.1-1.3); Absolute Neutrophil 3.6 K/uL (1.8-8.0); Basophils % 0.9 % (0-1.3); Hematocrit 25.5 % (39.6-49.0); Hemoglobin 7.4 g/dL (13.6-17.9); Lymphocytes % 16.9 % (15.3-44.8); MCHC 28.9 g/dL (32.0-36.0); MCV 62.2 fL (80-100); MPV 8.2 fL (7.6-11.3); Monocytes % 12.1 % (3.3-12.3); Neutrophils % 69.1 % (41.7-73.7); Nucleated Red Blood Cells % 0.1 % (0-0); Platelets 248 thou/uL (152-406); RBC Red Blood Cell Count 4.09 M/uL (4.33-5.43); Red Cell Distribution Width 19.1 % (12.1-15.2)
[2025-01-09 05:27] LABS: Anion Gap 10.6 mEq/L (5.0-15.0); Magnesium 2.2 mg/dL (1.6-2.4); Potassium 4.6 mEq/L (3.5-5.1)
[2025-01-09] MEDS: FLU (Fluarix Triv) TS24-25(6MOS UP)/PF 45 MCG/0.5 ML Syringe IM ONE (07:45)
[2025-01-09] MEDS: CLOPIDOGREL 75 MG TABLET PO SCH (08:09)
[2025-01-09] MEDS: VALSARTAN 80 MG TAB PO SCH ×2 (08:09→20:40)
--- NOTE | 2025-01-09 13:38 | P.PN ---
Subjective Date of Service: 01/09/25 Chief Complaint: Syncope Subjective: No chest pain or shortness of breath. No nausea or vomiting. No abdominal pain. No obvious bleeding. Looks comfortable in the bed. NO dizziness Objective: General appearance: Alert and comfortable CVS: Normal S1 and S2 Lungs: Clear to auscultation bilaterally Abdomen: Soft, bowel sounds present, no tenderness Extremities: No lower extremity edema Physical Examination - Vital Signs Temperature: 98.2 F Blood Pressure: 145/61 Pulse: 65 Respirations: 17 Pulse Ox (%): 94 - Studies Laboratory Data (last 24 hrs) 01/08/25 01/08/25 01/08/25 13:59 13:59 13:59 WBC 5.20 Hgb 8.4 L Hct 27.7 L Plt Count 283 PT 11.2 INR 0.98 APTT 23.6 L Sodium 138 Potassium 4.2 BUN 25 H Creatinine 1.69 H Glucose 135 H Magnesium 2.3 Total Bilirubin 0.4 AST 13 L ALT 28 Alkaline Phosphatase 66 Assessment And Plan - Plan 1. Syncope secondary to symptomatic bradycardia -Likely from polypharmacy, on nebivolol -Per EMS report, received 0.5 mg of atropine with improvement in pulse, currently in 60's -off nebivolol -Monitor on telemetry -Cardiology was consulted -TSH normal -Check echo -CT head neg 2. History of peripheral artery disease with multiple stents in the left lower extremity -Resume aspirin and Eliquis 3. Iron deficiency anemia likely secondary to chronic blood loss anemia -monitor Hemoglobin -Also ordered IV iron daily x 3 days 4. essential hypertension -continue home meds amlodipine and ARB -BP high, increase ARB to BID 5. History of BPH status post recent TURP 6. History of hyperlipidemia -continue statin at home dose 7. CKD 3a: monitor Plan Discussed with the patient, answered all questions.
[2025-01-09 17:23] LABS: Absolute Basophils 0.1 K/uL (0-0.5); Absolute Eosinophils 0.1 K/uL (0-0.5); Absolute Lymphocytes (CBC) 2.1 K/uL (0.7-4.9); Absolute Neutrophil 3.9 K/uL (1.8-8.0); Basophils % 1.1 % (0-1.3); Eosinophils % 1.9 % (0-4.4); Hematocrit 27.8 % (39.6-49.0); Hemoglobin 8.3 g/dL (13.6-17.9); Lymphocytes % 29.2 % (15.3-44.8); MCH 18.4 pg (27.0-35.0); MCHC 29.9 g/dL (32.0-36.0); MCV 61.5 fL (80-100); MPV 8.5 fL (7.6-11.3); Neutrophils % 53.8 % (41.7-73.7); Nucleated Red Blood Cells % 0.1 % (0-0); Platelets 301 thou/uL (152-406); RBC Red Blood Cell Count 4.52 M/uL (4.33-5.43); Red Cell Distribution Width 19.7 % (12.1-15.2)
[2025-01-09 17:30] LABS: Blood Morphology Comment NOTED (NOT SEEN); Hypochromasia 2+; Microcytosis 2+; Platelet Estimate ADEQ; White Blood Cell Scan OK (OK)
[2025-01-09] MEDS ORDERED: SOD FERRIC GLUC COMPLX/SUCROSE 125 MG in NA CHLORIDE 0.9% 100 ML IV SCH (17:30)
[2025-01-10 06:06] LABS: Absolute Basophils 0.1 K/uL (0-0.5); Absolute Eosinophils 0.1 K/uL (0-0.5); Absolute Lymphocytes (CBC) 1.4 K/uL (0.7-4.9); Absolute Monocytes 0.5 K/uL (0.1-1.3); Absolute Neutrophil 2.2 K/uL (1.8-8.0); Basophils % 1.4 % (0-1.3); Eosinophils % 2.7 % (0-4.4); Hematocrit 26.2 % (39.6-49.0); Hemoglobin 7.7 g/dL (13.6-17.9); Lymphocytes % 31.8 % (15.3-44.8); MCH 18.3 pg (27.0-35.0); MCHC 29.3 g/dL (32.0-36.0); MCV 62.7 fL (80-100); MPV 8.4 fL (7.6-11.3); Monocytes % 11.9 % (3.3-12.3); Neutrophils % 52.2 % (41.7-73.7); Nucleated Red Blood Cells % 0.1 % (0-0); Platelets 272 thou/uL (152-406); RBC Red Blood Cell Count 4.17 M/uL (4.33-5.43); Red Cell Distribution Width 19.2 % (12.1-15.2)
[2025-01-10 06:16] LABS: Anion Gap 10.3 mEq/L (5.0-15.0); Magnesium 2.4 mg/dL (1.6-2.4); Potassium 4.3 mEq/L (3.5-5.1)
[2025-01-10 08:39] VITALS: BP 153/57; TEMP 98
[2025-01-10 09:00] VITALS: O2SAT 96
--- NOTE | 2025-01-10 09:50 | P.CNS ---
Date of Consult: 01/10/25 Chief Complaint: Syncope History of Present Illness: Patient with PMH of CAD, PAD, presented with syncope, all he remember that he was not feeling good, weak, did not have much food that morning and passed out, EMS found him to have HR of 40s that responded to atropine, denies chest pain, no palpitation, no syncope, no breathing problems. Allergies No Known Allergies Allergy (Verified 10/06/24 09:27) Home medications list reviewed: Yes Home Medications: Amlodipine Besylate 10 mg PO DAILY 01/22/23 Aspirin [Low Dose Aspirin EC] 81 mg PO DAILY 01/22/23 Finasteride [Proscar*] 5 mg PO DAILY 01/22/23 Isosorbide Mononitrate [Isosorbide Mononitrate ER] 30 mg PO DAILY 05/20/24 Nebivolol HCl [Bystolic*] 5 mg PO DAILY 05/20/24 Olmesartan Medoxomil 40 mg PO DAILY 05/20/24 Nebivolol HCl [Bystolic*] 5 mg PO DAILY tab 10/13/24 - Past Medical/Surgical History Diabetic: No -: Hypertension, hyperlipidemia, CAD, prostate cancer -: CAD -: Illiac pain -: lower back arthritis -: Cholesystectomy -: appendectomy -: rotator cuff surgery -: TURP -: CABG -: STENTS left leg - Social History Alcohol use: No CD- Drugs: No Caffeine use: No Place of Residence: Home Review of Systems 10-point ROS is otherwise unremarkable Physical Examination Temp Pulse Resp BP Pulse Ox 98 F 59 17 153/57 H 96 01/10/25 08:00 01/10/25 08:08 01/10/25 08:00 01/10/25 08:08 01/10/25 08:00 General: Alert, In no apparent distress HEENT: Atraumatic, PERRLA, Mucous membr. moist/pink, EOMI, Sclerae nonicteric Neck: Supple, 2+ carotid pulse no bruit, No LAD, Without JVD or thyroid abnormality Respiratory: Clear to auscultation bilaterally, Normal air movement Cardiovascular: Regular rate/rhythm, Normal S1 S2 Gastrointestinal: Normal bowel sounds, No tenderness Musculoskeletal: No tenderness Integumentary: No rashes Neurological: Normal gait, Normal speech, Normal tone, Normal affect Lymphatics: No axilla or inguinal lymphadenopathy Laboratory Data (last 24 hrs) 01/09/25 01/09/25 17:10 17:10 WBC 7.20 Hgb 8.3 L D Hct 27.8 L Plt Count 301 Sodium 137 D Potassium 4.0 D BUN 25 H Creatinine 1.56 H Glucose 119 H - Problems (1) CAD (coronary artery disease) Current Visit: Yes Status: Acute Plan: Patient is stable with negative troponin, outpatient follow up with cardiology continue Plavix 75 mg daily (2) PAD (peripheral artery disease) Current Visit: Yes Status: Acute Plan: patient is scheduled for VERONIKA in cardiology office tomorrow. continue Plavix. continue eliquis 2.5 mg BID (3) Syncope Current Visit: No Status: Acute Plan: Patient denies chest pain, no palpitations, patient mention that he did not eat food that morning, but EMS found patient with HR in the 40s, responded to atropine. agree with continuing to hold BB patient tele overnight did not show any pauses, HR in the 60s. outpatient follow up with cardiology for an event monitor continue rest of BP medications.
--- NOTE | 2025-01-10 10:28 | P.DS ---
Admission Date: 01/09/25 Discharge Date: 01/10/25 Disposition: DC HOME/HOME HEALTH CARE Discharge Condition: FAIR Reason for Admission: Syncope Hospital Course: 1. Syncope secondary to symptomatic bradycardia -Likely from polypharmacy, on nebivolol -Per EMS report, received 0.5 mg of atropine with improvement in pulse, currently in 60's -off nebivolol -Cardiology was consulted, rec o/p f/u -TSH normal -echo pending, patieint would like follow-up with cardiology tomorrow and get a echo done as an outpatient -CT head neg 2. History of peripheral artery disease with multiple stents in the left lower extremity -Resume home meds 3. Iron deficiency anemia likely secondary to chronic blood loss anemia -monitor Hemoglobin -Also ordered IV iron daily x 3 days 4. essential hypertension -continue home meds amlodipine and ARB -DC BB 5. History of BPH status post recent TURP 6. History of hyperlipidemia 7. CKD 3a: f/u with PCP Plan Discussed with the patient, answered all questions. d/w RN. [place] home. 79-year-old patient admitted with syncope, it was felt to be secondary to bradycardia and anemia, his beta-sergio was held, he was given IV iron, his hemoglobin is stable, when I see the patient today he is doing well without any acute problems, cardiology evaluated him, they agreed with holding beta-sergio, they cleared the patient to be discharged and follow-up with cardiology tomorrow as an outpatient, echo is still pending but the patient really wants to go home and get the echo as an outpatient, as he is not symptomatic at this time, I am going to discharge him at his request. Subjective: No chest pain or shortness of breath. No nausea or vomiting. No abdominal pain. No obvious bleeding. Looks comfortable in the bed. No dizziness. Objective: General appearance: Alert and comfortable CVS: Normal S1 and S2 Lungs: Clear to auscultation bilaterally Abdomen: Soft, bowel sounds present, no tenderness Extremities: No lower extremity edema Vital Signs/Physical Exam: Temp Pulse Resp BP Pulse Ox 98 F 59 17 153/57 H 96 01/10/25 08:00 01/10/25 08:08 01/10/25 08:00 01/10/25 08:08 01/10/25 08:00 Laboratory Data at Discharge: WBC 4.30 thou/uL (4.3-10.9) 01/10/25 05:32 Hgb 7.7 g/dL (13.6-17.9) L 01/10/25 05:32 Hct 26.2 % (39.6-49.0) L 01/10/25 05:32 Plt Count 272 thou/uL (152-406) 01/10/25 05:32 PT 11.2 SECONDS (10.0-13.0) 01/08/25 13:59 INR 0.98 01/08/25 13:59 APTT 23.6 SECONDS (24.3-36.9) L 01/08/25 13:59 Sodium 139 mEq/L (136-145) 01/10/25 05:32 Potassium 4.3 mEq/L (3.5-5.1) 01/10/25 05:32 BUN 25 mg/dL (7-18) H 01/10/25 05:32 Creatinine 1.56 mg/dL (0.70-1.30) H 01/10/25 05:32 Glucose 102 mg/dL (74-106) 01/10/25 05:32 Magnesium 2.4 mg/dL (1.6-2.4) 01/10/25 05:32 Total Bilirubin 0.4 mg/dL (0.2-1.0) 01/08/25 13:59 AST 13 U/L (15-37) L 01/08/25 13:59 ALT 28 U/L (16-61) 01/08/25 13:59 Alkaline Phosphatase 66 U/L (45-117) 01/08/25 13:59 Imagings Data: Chest Xray: IMPRESSION: No acute intrathoracic abnormalities. CT head: FINDINGS: No evidence of hydrocephalus, intracranial hemorrhage, or extra-axial fluid collection. The brain is normal in morphology. No evidence of midline shift or areas of brain edema. The calvarium is intact. The visualized paranasal sinuses and mastoid air cells are essentially clear. IMPRESSION: No evidence of acute intracranial abnormality. Home Medications: Amlodipine Besylate 10 mg PO DAILY 01/22/23 Aspirin [Low Dose Aspirin EC] 81 mg PO DAILY 01/22/23 Finasteride [Proscar*] 5 mg PO DAILY 01/22/23 Isosorbide Mononitrate [Isosorbide Mononitrate ER] 30 mg PO DAILY 05/20/24 Olmesartan Medoxomil 40 mg PO DAILY 05/20/24 Followup: Leeroy Pritchett MD [ACTIVE - CAN ADMIT] - 1-2 Days (f/u with cardiology tomorrow as scheduled) NONE,NONE [Primary Care Provider] - 1 Week (f/u with PCP in 1 week with CBC and CMP) Time spent managing pt's care (in minutes): 40
--- NOTE | 2025-01-11 12:12 | EKG ---
Test Date: 2025-01-08 Test Time: 13:34:12 Registration Representative: IVETTE MEASUREMENT RESULTS: Intervals: Rate: 64 NC: 150 QRSD: 92 QT: 410 QTc: 422 [place]: P: 30 NC: 150 QRS: 67 T: 46 INTERPRETIVE STATEMENTS: Normal sinus rhythm Normal ECG Compared to ECG 10/06/2024 10:39:46 Sinus bradycardia no longer present Electronically Signed On 01-11-25 12:05:57 RELIGIOUS LEADER by Leeroy Pritchett
--- NOTE | 2025-01-11 12:12 | EKG ---
Test Date: 2025-01-08 Test Time: 13:36:17 Tire Inspector: IVETTE MEASUREMENT RESULTS: Intervals: Rate: 59 [place]: 170 QRSD: 84 QT: 426 QTc: 421 [place]: P: 21 [place]: 170 QRS: 56 T: 36 INTERPRETIVE STATEMENTS: Sinus bradycardia Otherwise normal ECG Compared to ECG 10/06/2024 10:39:46 No significant changes Electronically Signed On 01-11-25 12:05:53 MOBILE MARKETING MANAGER by Leeroy Pritchett
== END 2025-01-10 11:04 | disposition home health service (06) | DRG 812 ==
LOC: ER 13:13 → ERHOLD 16:56 → 4TH 22:38 → OBSVTOIN 01-09 19:45
PROVIDERS: ADMIT Internal Medicine; ATTEND Hospitalist
DX: D50.9 Iron deficiency anemia, unspecified (principal); R00.1 Bradycardia, unspecified; I10 Essential (primary) hypertension; E78.5 Hyperlipidemia, unspecified; I12.9 Hypertensive chronic kidney disease with stage 1 through stage 4 chronic kidney disease, or unspecified chronic kidney disease; N18.31 Chronic kidney disease, stage 3a; D63.1 Anemia in chronic kidney disease; I73.9 Peripheral vascular disease, unspecified; N40.0 Benign prostatic hyperplasia without lower urinary tract symptoms; I25.10 Atherosclerotic heart disease of native coronary artery without angina pectoris; T50.915A Adverse effect of multiple unspecified drugs, medicaments and biological substances, initial encounter; Z95.1 Presence of aortocoronary bypass graft; Z95.5 Presence of coronary angioplasty implant and graft; Z79.82 Long term (current) use of aspirin; Z79.01 Long term (current) use of anticoagulants; Z85.46 Personal history of malignant neoplasm of prostate; Z90.49 Acquired absence of other specified parts of digestive tract; Z79.02 Long term (current) use of antithrombotics/antiplatelets; Z79.899 Other long term (current) drug therapy
CPT/HCPCS: 36415; 70450; 71045; 80048; 80076; 81003; 82728; 83540; 83735; 84443; 84466; 84484; 85025; 85044; 85610; 85730; 93005; 94760; 96360; 97161; 99285; G0378; J0360; J2916; J7030